=== PATIENT | male | born 1950 | race Caucasian/White ===

== ENCOUNTER 2020-04-21 18:19 | Inpatient (IN) | payer OTHER, SELFPAY ==
[~2020-04-21] VITALS: Ht 172.7 cm; Wt 76.7 kg
[2020-04-21] MEDS ORDERED: DEXAMETHASONE SOD PHOSPHATE 4 MG/ML VIAL IVP ONE (18:30)
[2020-04-21 18:44] VITALS: BP_SYST 100
[2020-04-21 19:36] LABS: BASOPHILS % (AUTO) 0.2 % (0.0-2.0); HEMATOCRIT 37.9 % (36-54); HEMOGLOBIN 13.1 g/dL (14.0-18.0); LYMPHOCYTES # (AUTO) 0.9 K/uL (1.0-5.5); LYMPHOCYTES % (AUTO) 6.2 % (20.5-51.5); MEAN CORPUSCULAR HEMOGLOBIN 31 pg (27-31); MEAN CORPUSCULAR HGB CONC 35 % (32-36); MEAN CORPUSCULAR VOLUME 89 fL (79.0-98.0); MONOCYTES # (AUTO) 1.1 K/uL (0.0-1.0); MONOCYTES % (AUTO) 7.2 % (1.7-9.3); NEUTROPHILS # (AUTO) 12.7 K/uL (1.8-7.7); NEUTROPHILS % (AUTO) 86.4 % (40.0-70.0); RED BLOOD CELL COUNT(AUTO) 4.29 MIL/uL (4.2-6.2); WHITE BLOOD COUNT (AUTO) 14.7 K/uL (4.8-10.8)
[2020-04-21 19:46] LABS: CALCIUM 8.1 mg/dL (8.4-11.0); CREATININE 1.46 mg/dL (0.55-1.30); POTASSIUM 4.7 mmol/L (3.5-5.1)
[2020-04-21] MEDS ORDERED: AZITHROMYCIN 500 MG in NS 250 ML IV ONE (20:00)
[2020-04-21] MEDS ORDERED: cefTRIAXone 1 GM IVPB PREMIX 50 ML IV ONE ×2 (20:00→23:45)
[2020-04-21 20:03] LABS: ALBUMIN 2.6 g/dL (3.4-4.8); TOTAL BILIRUBIN 0.9 mg/dL (0.0-1.0)
[2020-04-21] MEDS ORDERED: AZITHROMYCIN 500 MG/VIAL (ZITHROMAX) IV ONE (20:17)
[2020-04-21 20:18] LABS: PLATELET COUNT (AUTO) 344 K/uL (130-430)
[2020-04-21] MEDS ORDERED: DEXAMETHASONE SOD PHOSPHATE 10 MG/ML VIAL ONE (20:18)
[2020-04-21 20:30] LABS: INR 1.1 (0.80-1.20); PROTHROMBIN TIME 11.6 SECS (9.5-12.5)
[2020-04-21] MEDS ORDERED: ENOXAPARIN SODIUM 60 MG/0.6 ML SYRINGE SUBCUT ONE (21:00)
[2020-04-21] MEDS ORDERED: NS 500 ML IV ONE (21:00)
[2020-04-21 21:06] LABS: C-REACTIVE PROTEIN QUANT 37.9 mg/dL (0-0.5)
[2020-04-21] MEDS ORDERED: NITROGLYCERIN 0.4 MG TAB.SUBL SL PRN (23:30)
[2020-04-21] MEDS ORDERED: ALBUTEROL MDI INHALATION 8 GM INH INH PRN (23:30)
[2020-04-21] MEDS ORDERED: ONDANSETRON HCL 4 MG/2 ML VIAL IVP PRN (23:30)
[2020-04-22] MEDS ORDERED: ALBUTEROL SULFATE 0.083% 2.5 MG/3 ML VIAL.NEB INH PRN (07:15)
[2020-04-22 08:04] LABS: ALBUMIN 2.5 g/dL (3.4-4.8); CALCIUM 7.5 mg/dL (8.4-11.0); CREATININE 1.45 mg/dL (0.55-1.30); POTASSIUM 4.6 mmol/L (3.5-5.1); TOTAL BILIRUBIN 0.6 mg/dL (0.0-1.0)
[2020-04-22 08:14] LABS: BASOPHILS % (AUTO) 0.2 % (0.0-2.0); EOSINOPHILS % (AUTO) 0.1 % (0.0-4.0); HEMATOCRIT 36.9 % (36-54); HEMOGLOBIN 12.9 g/dL (14.0-18.0); LYMPHOCYTES # (AUTO) 0.6 K/uL (1.0-5.5); LYMPHOCYTES % (AUTO) 6.9 % (20.5-51.5); MEAN CORPUSCULAR HEMOGLOBIN 31 pg (27-31); MEAN CORPUSCULAR HGB CONC 35 % (32-36); MEAN CORPUSCULAR VOLUME 89 fL (79.0-98.0); MONOCYTES # (AUTO) 0.4 K/uL (0.0-1.0); MONOCYTES % (AUTO) 4.7 % (1.7-9.3); NEUTROPHILS # (AUTO) 8.3 K/uL (1.8-7.7); NEUTROPHILS % (AUTO) 88.1 % (40.0-70.0); PLATELET COUNT (AUTO) 261 K/uL (130-430); RED BLOOD CELL COUNT(AUTO) 4.15 MIL/uL (4.2-6.2); RED CELL DISTRIBUTION WIDTH 13.1 % (9.0-15.0); WHITE BLOOD COUNT (AUTO) 9.4 K/uL (4.8-10.8)
[2020-04-22] MEDS: DEXAMETHASONE SOD PHOSPHATE 10 MG/ML VIAL IVP SCH (08:22)
[2020-04-22] MEDS: FAMOTIDINE 20 MG TABLET PO SCH ×2 (08:23→22:17)
[2020-04-22] MEDS: LISINOPRIL 10 MG TABLET (PRINIVIL) PO SCH (08:24)
[2020-04-22] MEDS ORDERED: CHOLECALCIFEROL (VITAMIN D3) 2,000 UNIT TABLET PO SCH (09:00)
[2020-04-22] MEDS: ATORVASTATIN 20 MG TABLET PO SCH (09:02)
[2020-04-22] MEDS: ASCORBIC ACID 500 MG TABLET PO SCH ×2 (09:02→22:17)
[2020-04-22] MEDS: ENOXAPARIN SODIUM 80 MG/0.8 ML SYRINGE SUBCUT SCH ×2 (09:03→22:20)
[2020-04-22] MEDS ORDERED: AMLO1CAP6 PO (11:00)
[2020-04-22] MEDS ORDERED: LIP10 PO (11:00)
[2020-04-22] MEDS ORDERED: HYDR-4274 PO (11:00)
[2020-04-22 13:13] LABS: C-REACTIVE PROTEIN QUANT 37.6 mg/dL (0-0.5)
[2020-04-22] MEDS: NACL 0.9% 1,000 ML IV SCH (13:58)
[2020-04-22 14:12] LABS: BILIRUBIN,URINE NEGATIVE (NEGATIVE); BLOOD, URINE 1+ (NEGATIVE); CLARITY/URINE SL CLOUDY (CLEAR); COLOR,URINE YELLOW (YELLOW); GLUCOSE,URINE NEGATIVE (NEGATIVE); KETONES,URINE NEGATIVE (NEGATIVE); LEUKOCYTE ESTERASE ,URINE NEGATIVE (NEGATIVE); NITRITE, URINE NEGATIVE (NEGATIVE); PH,URINE 5.5 (5.0-8.0); PROTEIN URINE NEGATIVE (NEGATIVE); UROBILINOGEN,URINE 0.2 (0.2-1.0)
[2020-04-22 14:20] LABS: BACTERIA,URINE None Seen /HPF (None Seen); CALCIUM PHOSPHATE CRYSTALS,UR None Seen /HPF (None Seen); TRICHOMONAS,URINE None Seen /HPF (None Seen); WBC,URINE 0-3 /HPF (0-3); YEAST,URINE None Seen /HPF (None Seen)
[2020-04-22] MEDS ORDERED: cefTRIAXone 1 GM IVPB PREMIX 50 ML IV SCH (21:00)
[2020-04-22] MEDS: AZITHROMYCIN 500 MG in NS 250 ML IV SCH (22:19)
[2020-04-23 00:07] LABS: ERYTHROCYTE SEDIMENTATION RATE 60 MM/HR (0-15)
[2020-04-23 08:15] LABS: HEMATOCRIT 36.2 % (36-54); HEMOGLOBIN 12.5 g/dL (14.0-18.0); MEAN CORPUSCULAR HEMOGLOBIN 31 pg (27-31); MEAN CORPUSCULAR HGB CONC 34 % (32-36); MEAN CORPUSCULAR VOLUME 89 fL (79.0-98.0); PLATELET COUNT (AUTO) 284 K/uL (130-430); RED BLOOD CELL COUNT(AUTO) 4.08 MIL/uL (4.2-6.2); RED CELL DISTRIBUTION WIDTH 13.1 % (9.0-15.0); WHITE BLOOD COUNT (AUTO) 18.8 K/uL (4.8-10.8)
[2020-04-23] MEDS: DEXAMETHASONE SOD PHOSPHATE 10 MG/ML VIAL IVP SCH (08:39)
[2020-04-23] MEDS: ATORVASTATIN 20 MG TABLET PO SCH (08:41)
[2020-04-23 08:42] LABS: ALBUMIN 2.2 g/dL (3.4-4.8); CALCIUM 7.8 mg/dL (8.4-11.0); CREATININE 0.99 mg/dL (0.55-1.30); POTASSIUM 4.5 mmol/L (3.5-5.1); THYROID STIMULATING HORMONE 0.18 uIu/mL (0.36-3.74); TOTAL BILIRUBIN 0.5 mg/dL (0.0-1.0)
[2020-04-23] MEDS: FAMOTIDINE 20 MG TABLET PO SCH ×2 (08:42→20:46)
[2020-04-23] MEDS: ASCORBIC ACID 500 MG TABLET PO SCH ×2 (08:43→20:45)
[2020-04-23] MEDS: LISINOPRIL 10 MG TABLET (PRINIVIL) PO SCH (08:43)
[2020-04-23] MEDS: CHOLECALCIFEROL (VITAMIN D3) 5,000 UNIT TABLET PO SCH (08:44)
[2020-04-23] MEDS: ENOXAPARIN SODIUM 80 MG/0.8 ML SYRINGE SUBCUT SCH (08:45)
[2020-04-23] MEDS: NACL 0.9% 1,000 ML IV SCH (08:46)
[2020-04-23 15:06] LABS: BAND % (MANUAL) 4 % (0-6); BASOPHILS % (MANUAL) 0 % (0-2); EOSINOPHILS % (MANUAL) 0 % (0-7); LYMPHOCYTES % (MANUAL) 7 % (20-46); MONOCYTES % (MANUAL) 4 % (0-11)
[2020-04-23] MEDS: AZITHROMYCIN 500 MG in NS 250 ML IV SCH (20:40)
[2020-04-24] MEDS ORDERED: ACETAMINOPHEN 325 MG TABLET ONE ×2 (04:06→11:59)
[2020-04-24] MEDS: ACETAMINOPHEN 325 MG TABLET PO PRN ×2 (04:16→12:03)
[2020-04-24 07:03] LABS: ALBUMIN 2.2 g/dL (3.4-4.8); CALCIUM 7.5 mg/dL (8.4-11.0); CREATININE 0.92 mg/dL (0.55-1.30); POTASSIUM 4.6 mmol/L (3.5-5.1); TOTAL BILIRUBIN 0.5 mg/dL (0.0-1.0)
[2020-04-24 07:32] LABS: C-REACTIVE PROTEIN QUANT 8.3 mg/dL (0-0.5)
[2020-04-24 08:01] LABS: BASOPHILS # (AUTO) 0.1 K/uL (0.0-0.2); BASOPHILS % (AUTO) 0.4 % (0.0-2.0); EOSINOPHILS % (AUTO) 0.2 % (0.0-4.0); HEMATOCRIT 35.9 % (36-54); HEMOGLOBIN 12.2 g/dL (14.0-18.0); LYMPHOCYTES # (AUTO) 0.7 K/uL (1.0-5.5); LYMPHOCYTES % (AUTO) 4.7 % (20.5-51.5); MEAN CORPUSCULAR HEMOGLOBIN 31 pg (27-31); MEAN CORPUSCULAR HGB CONC 34 % (32-36); MEAN CORPUSCULAR VOLUME 90 fL (79.0-98.0); MONOCYTES # (AUTO) 0.6 K/uL (0.0-1.0); MONOCYTES % (AUTO) 3.8 % (1.7-9.3); NEUTROPHILS % (AUTO) 90.9 % (40.0-70.0); PLATELET COUNT (AUTO) 257 K/uL (130-430); RED BLOOD CELL COUNT(AUTO) 3.99 MIL/uL (4.2-6.2); RED CELL DISTRIBUTION WIDTH 13.2 % (9.0-15.0)
[2020-04-24] MEDS: DEXAMETHASONE SOD PHOSPHATE 10 MG/ML VIAL IVP SCH (08:12)
[2020-04-24] MEDS: ATORVASTATIN 20 MG TABLET PO SCH (08:12)
[2020-04-24] MEDS: ASCORBIC ACID 500 MG TABLET PO SCH ×2 (08:12→21:36)
[2020-04-24] MEDS: FAMOTIDINE 20 MG TABLET PO SCH ×2 (08:13→21:36)
[2020-04-24] MEDS: LISINOPRIL 10 MG TABLET (PRINIVIL) PO SCH (08:14)
[2020-04-24 08:17] LABS: WHITE BLOOD COUNT (AUTO) 15.4 K/uL (4.8-10.8)
[2020-04-24] MEDS: CHOLECALCIFEROL (VITAMIN D3) 5,000 UNIT TABLET PO SCH (09:34)
[2020-04-24] MEDS: ENOXAPARIN SODIUM 80 MG/0.8 ML SYRINGE SUBCUT SCH (09:36)
[2020-04-24 09:45] LABS: ERYTHROCYTE SEDIMENTATION RATE 23 MM/HR (0-15)
[2020-04-24] MEDS ORDERED: ANUSOL 1 EA SUPP.RECT (PREPARATION H) RC PRN (10:15)
[2020-04-24] MEDS: LIDOCAINE JELLY 5 ML TUBE MM SCH ×2 (11:28→21:35)
[2020-04-24] MEDS ORDERED: DEXAMETHASONE SOD PHOSPHATE 10 MG/ML VIAL ONE (13:32)
[2020-04-24] MEDS: AZITHROMYCIN 500 MG in NS 250 ML IV SCH (21:37)
[2020-04-25] MEDS ORDERED: LORazepam 2 MG/ML VIAL ONE ×2 (00:15→10:45)
[2020-04-25] MEDS ORDERED: LORazepam 2 MG/ML VIAL IVP ONE (00:15)
[2020-04-25] MEDS: LORazepam 2 MG/ML VIAL IVP PRN ×2 (00:41→10:46)
[2020-04-25] MEDS ORDERED: IPRATROPIUM/ALBUTEROL SULFATE 3 ML AMPUL.NEB (DUONEB) INH ONE (00:45)
[2020-04-25] MEDS ORDERED: DEXAMETHASONE SOD PHOSPHATE 10 MG/ML VIAL IVP ONE (00:45)
[2020-04-25] MEDS ORDERED: DEXAMETHASONE SOD PHOSPHATE 10 MG/ML VIAL ONE (00:46)
[2020-04-25] MEDS ORDERED: FUROSEMIDE 100 MG/10 ML VIAL ONE (00:52)
[2020-04-25] MEDS ORDERED: FUROSEMIDE 40 MG/4 ML VIAL IVP ONE (01:00)
[2020-04-25] MEDS ORDERED: PROPOFOL DRIP 100 ML IV ONE ×4 (01:18→21:07)
[2020-04-25] MEDS ORDERED: ETOMIDATE 20 MG/ 10 ML VIAL (AMIDATE) IVP ONE (01:45)
[2020-04-25] MEDS ORDERED: ROCURONIUM BROMIDE 10 MG/ML (ZEMURON) IV ONE (01:45)
[2020-04-25] MEDS: PROPOFOL DRIP 100 ML IV PRN ×2 (02:42→22:33)
[2020-04-25 04:31] VITALS: BP_SYST 123
[2020-04-25 05:23] VITALS: BP_SYST 115
[2020-04-25 06:01] LABS: BASOPHILS % (AUTO) 0.1 % (0.0-2.0); HEMATOCRIT 37.6 % (36-54); HEMOGLOBIN 12.5 g/dL (14.0-18.0); LYMPHOCYTES # (AUTO) 0.5 K/uL (1.0-5.5); LYMPHOCYTES % (AUTO) 1.6 % (20.5-51.5); MEAN CORPUSCULAR HEMOGLOBIN 30 pg (27-31); MEAN CORPUSCULAR HGB CONC 33 % (32-36); MEAN CORPUSCULAR VOLUME 90 fL (79.0-98.0); MONOCYTES # (AUTO) 0.8 K/uL (0.0-1.0); MONOCYTES % (AUTO) 2.6 % (1.7-9.3); NEUTROPHILS # (AUTO) 28.5 K/uL (1.8-7.7); NEUTROPHILS % (AUTO) 95.7 % (40.0-70.0); PLATELET COUNT (AUTO) 184 K/uL (130-430); RED BLOOD CELL COUNT(AUTO) 4.17 MIL/uL (4.2-6.2); RED CELL DISTRIBUTION WIDTH 13.2 % (9.0-15.0); WHITE BLOOD COUNT (AUTO) 29.8 K/uL (4.8-10.8)
[2020-04-25 06:03] LABS: ALBUMIN 2.4 g/dL (3.4-4.8); CALCIUM 7.5 mg/dL (8.4-11.0); CREATININE 1.29 mg/dL (0.55-1.30); POTASSIUM 5.6 mmol/L (3.5-5.1); TOTAL BILIRUBIN 0.5 mg/dL (0.0-1.0)
[2020-04-25 07:18] LABS: C-REACTIVE PROTEIN QUANT 27.9 mg/dL (0-0.5)
[2020-04-25 07:20] VITALS: BP_SYST 107
[2020-04-25 08:15] LABS: ERYTHROCYTE SEDIMENTATION RATE 25 MM/HR (0-15)
[2020-04-25] MEDS: LISINOPRIL 10 MG TABLET (PRINIVIL) PO SCH (09:00)
[2020-04-25] MEDS: DEXAMETHASONE SOD PHOSPHATE 10 MG/ML VIAL IVP SCH (10:47)
[2020-04-25 11:01] VITALS: BP_SYST 103
[2020-04-25] MEDS: FAMOTIDINE 20 MG TABLET PO SCH ×2 (15:00→21:36)
[2020-04-25] MEDS: CHOLECALCIFEROL (VITAMIN D3) 5,000 UNIT TABLET PO SCH (15:00)
[2020-04-25] MEDS: LIDOCAINE JELLY 5 ML TUBE MM SCH ×2 (15:00→21:35)
[2020-04-25] MEDS: ENOXAPARIN SODIUM 80 MG/0.8 ML SYRINGE SUBCUT SCH (15:00)
[2020-04-25] MEDS: ASCORBIC ACID 500 MG TABLET PO SCH ×2 (15:00→21:36)
[2020-04-25] MEDS: ATORVASTATIN 20 MG TABLET PO SCH (15:00)
[2020-04-25 15:23] VITALS: BP_SYST 94
[2020-04-25 19:20] VITALS: BP_SYST 101
[2020-04-25] MEDS: AZITHROMYCIN 500 MG in NS 250 ML IV SCH (21:35)
[2020-04-26] MEDS ORDERED: PROPOFOL DRIP 100 ML IV ONE ×3 (02:20→12:19)
[2020-04-26 02:21] VITALS: BP_SYST 105
[2020-04-26] MEDS: PROPOFOL DRIP 100 ML IV PRN ×3 (02:35→16:37)
[2020-04-26 07:35] VITALS: BP_SYST 136
[2020-04-26 08:08] LABS: BASOPHILS % (AUTO) 0.2 % (0.0-2.0); EOSINOPHILS # (AUTO) 0.1 K/uL (0.0-0.4); EOSINOPHILS % (AUTO) 0.4 % (0.0-4.0); HEMATOCRIT 34.8 % (36-54); HEMOGLOBIN 11.8 g/dL (14.0-18.0); LYMPHOCYTES # (AUTO) 1.1 K/uL (1.0-5.5); LYMPHOCYTES % (AUTO) 5.7 % (20.5-51.5); MEAN CORPUSCULAR HEMOGLOBIN 30 pg (27-31); MEAN CORPUSCULAR HGB CONC 34 % (32-36); MEAN CORPUSCULAR VOLUME 90 fL (79.0-98.0); MONOCYTES # (AUTO) 0.6 K/uL (0.0-1.0); NEUTROPHILS # (AUTO) 17.7 K/uL (1.8-7.7); NEUTROPHILS % (AUTO) 90.7 % (40.0-70.0); PLATELET COUNT (AUTO) 158 K/uL (130-430); RED BLOOD CELL COUNT(AUTO) 3.88 MIL/uL (4.2-6.2); RED CELL DISTRIBUTION WIDTH 13.1 % (9.0-15.0)
[2020-04-26 08:14] LABS: WHITE BLOOD COUNT (AUTO) 19.5 K/uL (4.8-10.8)
[2020-04-26] MEDS: DEXAMETHASONE SOD PHOSPHATE 10 MG/ML VIAL IVP SCH (08:18)
[2020-04-26] MEDS: LIDOCAINE JELLY 5 ML TUBE MM SCH ×2 (08:20→20:43)
[2020-04-26] MEDS: ENOXAPARIN SODIUM 80 MG/0.8 ML SYRINGE SUBCUT SCH (08:23)
[2020-04-26] MEDS: ATORVASTATIN 20 MG TABLET PO SCH (08:24)
[2020-04-26] MEDS: LISINOPRIL 10 MG TABLET (PRINIVIL) PO SCH (08:24)
[2020-04-26 08:48] LABS: CALCIUM 7.7 mg/dL (8.4-11.0); CREATININE 0.86 mg/dL (0.55-1.30); POTASSIUM 5.5 mmol/L (3.5-5.1); TOTAL BILIRUBIN 0.4 mg/dL (0.0-1.0)
[2020-04-26] MEDS: CHOLECALCIFEROL (VITAMIN D3) 5,000 UNIT TABLET PO SCH (09:00)
[2020-04-26] MEDS: ASCORBIC ACID 500 MG TABLET PO SCH ×2 (09:00→20:46)
[2020-04-26] MEDS: FAMOTIDINE 20 MG TABLET PO SCH ×2 (09:00→20:43)
[2020-04-26 15:26] VITALS: BP_SYST 130
[2020-04-26 17:25] VITALS: BP_SYST 113
[2020-04-26 19:30] VITALS: BP_SYST 107
[2020-04-26] MEDS: AZITHROMYCIN 500 MG in NS 250 ML IV SCH (21:15)
[2020-04-27] VITALS (8 sets, daily range): BP systolic 107–136
[2020-04-27 05:05] LABS: BASOPHILS # (AUTO) 0.1 K/uL (0.0-0.2); BASOPHILS % (AUTO) 0.7 % (0.0-2.0); EOSINOPHILS % (AUTO) 0.1 % (0.0-4.0); HEMATOCRIT 34.4 % (36-54); HEMOGLOBIN 11.5 g/dL (14.0-18.0); LYMPHOCYTES # (AUTO) 0.6 K/uL (1.0-5.5); LYMPHOCYTES % (AUTO) 3.1 % (20.5-51.5); MEAN CORPUSCULAR HEMOGLOBIN 30 pg (27-31); MEAN CORPUSCULAR HGB CONC 33 % (32-36); MEAN CORPUSCULAR VOLUME 90 fL (79.0-98.0); MONOCYTES # (AUTO) 0.8 K/uL (0.0-1.0); MONOCYTES % (AUTO) 4.1 % (1.7-9.3); NEUTROPHILS # (AUTO) 17.4 K/uL (1.8-7.7); PLATELET COUNT (AUTO) 182 K/uL (130-430); RED BLOOD CELL COUNT(AUTO) 3.81 MIL/uL (4.2-6.2); RED CELL DISTRIBUTION WIDTH 13.2 % (9.0-15.0); WHITE BLOOD COUNT (AUTO) 18.9 K/uL (4.8-10.8)
[2020-04-27 05:30] LABS: ALBUMIN 1.9 g/dL (3.4-4.8); CALCIUM 7.7 mg/dL (8.4-11.0); CREATININE 0.9 mg/dL (0.55-1.30); PHOSPHORUS 3.2 mg/dL (2.7-4.5); TOTAL BILIRUBIN 0.4 mg/dL (0.0-1.0)
[2020-04-27 05:31] LABS: POTASSIUM 5.9 mmol/L (3.5-5.1)
[2020-04-27 05:34] LABS: C-REACTIVE PROTEIN QUANT 20.2 mg/dL (0-0.5)
[2020-04-27 06:21] LABS: ERYTHROCYTE SEDIMENTATION RATE 23 MM/HR (0-15)
[2020-04-27] MEDS ORDERED: SODIUM POLYSTYRENE SULFONATE 15 GM/60 ML UDBTL NG ONE (07:15)
[2020-04-27] MEDS: FAMOTIDINE 20 MG TABLET PO SCH ×2 (08:47→20:31)
[2020-04-27] MEDS ORDERED: SODIUM POLYSTYRENE SULFONATE 15 GM/60 ML UDBTL ONE (08:47)
[2020-04-27] MEDS: DEXAMETHASONE SOD PHOSPHATE 10 MG/ML VIAL IVP SCH (08:47)
[2020-04-27] MEDS: ATORVASTATIN 20 MG TABLET PO SCH (08:47)
[2020-04-27] MEDS: LIDOCAINE JELLY 5 ML TUBE MM SCH ×2 (08:47→21:00)
[2020-04-27] MEDS: ASCORBIC ACID 500 MG TABLET PO SCH ×2 (08:48→20:32)
[2020-04-27] MEDS: CHOLECALCIFEROL (VITAMIN D3) 5,000 UNIT TABLET PO SCH (08:48)
[2020-04-27] MEDS: LISINOPRIL 10 MG TABLET (PRINIVIL) PO SCH (08:48)
[2020-04-27] MEDS: ENOXAPARIN SODIUM 80 MG/0.8 ML SYRINGE SUBCUT SCH (08:48)
[2020-04-27] MEDS ORDERED: PROPOFOL DRIP 100 ML IV ONE ×3 (10:22→18:59)
[2020-04-27] MEDS ORDERED: LORazepam 2 MG/ML VIAL ONE (10:35)
[2020-04-27] MEDS: PROPOFOL DRIP 100 ML IV PRN ×2 (10:54→19:03)
[2020-04-27] MEDS: LORazepam 2 MG/ML VIAL IVP PRN (10:54)
[2020-04-27] MEDS ORDERED: ACETAMINOPHEN 325 MG TABLET ONE (11:09)
[2020-04-27] MEDS: ACETAMINOPHEN 325 MG TABLET PO PRN (11:11)
[2020-04-27] MEDS ORDERED: FUROSEMIDE 20 MG/2 ML VIAL IVP ONE (19:30)
[2020-04-27] MEDS ORDERED: FUROSEMIDE 20 MG/2 ML VIAL ONE (22:27)
[2020-04-28] VITALS (12 sets, daily range): BP systolic 101–120
[2020-04-28 04:53] LABS: BASOPHILS % (AUTO) 0.3 % (0.0-2.0); EOSINOPHILS % (AUTO) 0.2 % (0.0-4.0); HEMATOCRIT 35.6 % (36-54); HEMOGLOBIN 11.9 g/dL (14.0-18.0); LYMPHOCYTES # (AUTO) 1.1 K/uL (1.0-5.5); LYMPHOCYTES % (AUTO) 7.6 % (20.5-51.5); MEAN CORPUSCULAR HEMOGLOBIN 30 pg (27-31); MEAN CORPUSCULAR HGB CONC 33 % (32-36); MEAN CORPUSCULAR VOLUME 90 fL (79.0-98.0); MONOCYTES # (AUTO) 0.8 K/uL (0.0-1.0); MONOCYTES % (AUTO) 5.6 % (1.7-9.3); NEUTROPHILS # (AUTO) 12.3 K/uL (1.8-7.7); NEUTROPHILS % (AUTO) 86.3 % (40.0-70.0); PLATELET COUNT (AUTO) 217 K/uL (130-430); RED BLOOD CELL COUNT(AUTO) 3.94 MIL/uL (4.2-6.2); WHITE BLOOD COUNT (AUTO) 14.3 K/uL (4.8-10.8)
[2020-04-28 05:13] LABS: C-REACTIVE PROTEIN QUANT 23.3 mg/dL (0-0.5)
[2020-04-28 05:28] LABS: ALBUMIN 1.9 g/dL (3.4-4.8); CALCIUM 7.8 mg/dL (8.4-11.0); CREATININE 0.91 mg/dL (0.55-1.30); FREE T4 (FREE THYROXINE) 1.2 ng/dl (0.8-1.5); POTASSIUM 5.2 mmol/L (3.5-5.1); TOTAL BILIRUBIN 0.4 mg/dL (0.0-1.0)
[2020-04-28 05:38] LABS: ERYTHROCYTE SEDIMENTATION RATE 66 MM/HR (0-15)
[2020-04-28] MEDS: PROPOFOL DRIP 100 ML IV PRN ×3 (06:00→11:11)
[2020-04-28] MEDS: ATORVASTATIN 20 MG TABLET PO SCH (08:44)
[2020-04-28] MEDS: DEXAMETHASONE SOD PHOSPHATE 10 MG/ML VIAL IVP SCH (08:44)
[2020-04-28] MEDS: CHOLECALCIFEROL (VITAMIN D3) 5,000 UNIT TABLET PO SCH (08:44)
[2020-04-28] MEDS: FAMOTIDINE 20 MG TABLET PO SCH ×2 (08:44→21:01)
[2020-04-28] MEDS: LIDOCAINE JELLY 5 ML TUBE MM SCH ×2 (08:44→20:58)
[2020-04-28] MEDS: ASCORBIC ACID 500 MG TABLET PO SCH ×2 (08:44→21:01)
[2020-04-28] MEDS: ENOXAPARIN SODIUM 40 MG/0.4 ML SYRINGE SUBCUT SCH (08:46)
[2020-04-28] MEDS: LISINOPRIL 10 MG TABLET (PRINIVIL) PO SCH (08:47)
[2020-04-28] MEDS ORDERED: SODIUM POLYSTYRENE SULFONATE 15 GM/60 ML UDBTL NG ONE (20:15)
[2020-04-28] MEDS: NACL 0.9% 1,000 ML IV SCH (21:00)
[2020-04-29] VITALS (7 sets, daily range): BP systolic 77–121
[2020-04-29] MEDS ORDERED: SODIUM POLYSTYRENE SULFONATE 15 GM/60 ML UDBTL ONE (05:41)
[2020-04-29 08:37] LABS: CALCIUM 7.9 mg/dL (8.4-11.0); CREATININE 0.88 mg/dL (0.55-1.30); PHOSPHORUS 4.5 mg/dL (2.7-4.5); POTASSIUM 5.1 mmol/L (3.5-5.1); TOTAL BILIRUBIN 0.5 mg/dL (0.0-1.0)
[2020-04-29] MEDS ORDERED: ENOXAPARIN SODIUM 40 MG/0.4 ML SYRINGE ONE (08:40)
[2020-04-29] MEDS: ATORVASTATIN 20 MG TABLET PO SCH (08:46)
[2020-04-29 08:47] LABS: BASOPHILS # (AUTO) 0.1 K/uL (0.0-0.2); BASOPHILS % (AUTO) 0.3 % (0.0-2.0); EOSINOPHILS # (AUTO) 0.1 K/uL (0.0-0.4); EOSINOPHILS % (AUTO) 0.7 % (0.0-4.0); HEMATOCRIT 37.6 % (36-54); HEMOGLOBIN 12.3 g/dL (14.0-18.0); LYMPHOCYTES # (AUTO) 0.9 K/uL (1.0-5.5); LYMPHOCYTES % (AUTO) 5.6 % (20.5-51.5); MEAN CORPUSCULAR HEMOGLOBIN 30 pg (27-31); MEAN CORPUSCULAR HGB CONC 33 % (32-36); MEAN CORPUSCULAR VOLUME 91 fL (79.0-98.0); MONOCYTES # (AUTO) 0.8 K/uL (0.0-1.0); MONOCYTES % (AUTO) 4.6 % (1.7-9.3); NEUTROPHILS # (AUTO) 14.9 K/uL (1.8-7.7); PLATELET COUNT (AUTO) 240 K/uL (130-430); RED BLOOD CELL COUNT(AUTO) 4.13 MIL/uL (4.2-6.2); WHITE BLOOD COUNT (AUTO) 16.8 K/uL (4.8-10.8)
[2020-04-29] MEDS: LISINOPRIL 10 MG TABLET (PRINIVIL) PO SCH (08:51)
[2020-04-29 08:52] LABS: C-REACTIVE PROTEIN QUANT 12.8 mg/dL (0-0.5)
[2020-04-29] MEDS: DEXAMETHASONE SOD PHOSPHATE 10 MG/ML VIAL IVP SCH (08:53)
[2020-04-29] MEDS: LIDOCAINE JELLY 5 ML TUBE MM SCH ×2 (09:00→20:27)
[2020-04-29] MEDS: ENOXAPARIN SODIUM 40 MG/0.4 ML SYRINGE SUBCUT SCH (09:02)
[2020-04-29] MEDS: FAMOTIDINE 20 MG TABLET PO SCH ×2 (09:21→20:26)
[2020-04-29] MEDS: ASCORBIC ACID 500 MG TABLET PO SCH ×2 (09:22→20:26)
[2020-04-29] MEDS: CHOLECALCIFEROL (VITAMIN D3) 5,000 UNIT TABLET PO SCH (09:23)
[2020-04-29] MEDS: PROPOFOL DRIP 100 ML IV PRN ×3 (09:54→18:49)
[2020-04-29 11:52] LABS: ERYTHROCYTE SEDIMENTATION RATE 82 MM/HR (0-15)
[2020-04-29 12:11] LABS: NEUTROPHILS % (AUTO) 88.8 % (40.0-70.0)
[2020-04-29] MEDS ORDERED: NS 500 ML IV ONE (15:15)
[2020-04-29] MEDS ORDERED: CEFEPIME 1 GM/VIAL (MAXIPIME) ONE (20:33)
[2020-04-29] MEDS: CEFEPIME 0.5 GM in D5W 50 ML IV SCH (20:39)
[2020-04-29] MEDS: NACL 0.9% 1,000 ML IV SCH (21:16)
[2020-04-30 00:05] VITALS: BP_SYST 147
[2020-04-30] MEDS ORDERED: ACETAMINOPHEN 650 MG SUPP.RECT RC ONE ×2 (01:05→06:35)
[2020-04-30] MEDS: ACETAMINOPHEN 325 MG TABLET PO PRN ×2 (01:06→06:39)
[2020-04-30] MEDS ORDERED: NOREPINEPHRINE 4 MG/4 ML VIAL IV ONE (01:55)
[2020-04-30] MEDS ORDERED: NOREPINEPHRINE BITARTRATE 4 MG in NS 246 ML IV PRN (02:15)
[2020-04-30] MEDS ORDERED: ALBUMIN HUMAN 25% 50 ML IV ONE ×2 (02:15→03:09)
[2020-04-30] MEDS: NACL 0.9% 1,000 ML IV SCH (04:31)
[2020-04-30 06:48] LABS: BASOPHILS % (AUTO) 0.2 % (0.0-2.0); HEMATOCRIT 32.7 % (36-54); HEMOGLOBIN 10.7 g/dL (14.0-18.0); LYMPHOCYTES # (AUTO) 0.7 K/uL (1.0-5.5); MEAN CORPUSCULAR HEMOGLOBIN 30 pg (27-31); MEAN CORPUSCULAR HGB CONC 33 % (32-36); MEAN CORPUSCULAR VOLUME 91 fL (79.0-98.0); NEUTROPHILS # (AUTO) 22.2 K/uL (1.8-7.7); NEUTROPHILS % (AUTO) 92.8 % (40.0-70.0); PLATELET COUNT (AUTO) 183 K/uL (130-430); RED BLOOD CELL COUNT(AUTO) 3.58 MIL/uL (4.2-6.2); RED CELL DISTRIBUTION WIDTH 13.3 % (9.0-15.0); WHITE BLOOD COUNT (AUTO) 23.9 K/uL (4.8-10.8)
[2020-04-30 07:00] LABS: ALBUMIN 1.9 g/dL (3.4-4.8); CALCIUM 7.5 mg/dL (8.4-11.0); CREATININE 1.14 mg/dL (0.55-1.30); POTASSIUM 4.4 mmol/L (3.5-5.1); TOTAL BILIRUBIN 0.7 mg/dL (0.0-1.0)
[2020-04-30 07:20] VITALS: BP_SYST 112
[2020-04-30] MEDS: ATORVASTATIN 20 MG TABLET PO SCH (09:00)
[2020-04-30] MEDS: LISINOPRIL 10 MG TABLET (PRINIVIL) PO SCH (09:00)
[2020-04-30] MEDS: ASCORBIC ACID 500 MG TABLET PO SCH ×2 (09:00→21:00)
[2020-04-30] MEDS: CHOLECALCIFEROL (VITAMIN D3) 5,000 UNIT TABLET PO SCH (09:00)
[2020-04-30] MEDS: FAMOTIDINE 20 MG TABLET PO SCH ×2 (09:00→21:00)
[2020-04-30] MEDS: LIDOCAINE JELLY 5 ML TUBE MM SCH ×2 (09:57→21:00)
[2020-04-30] MEDS: DEXAMETHASONE SOD PHOSPHATE 10 MG/ML VIAL IVP SCH (09:57)
[2020-04-30] MEDS: CEFEPIME 0.5 GM in D5W 50 ML IV SCH ×2 (09:57→23:41)
[2020-04-30 10:27] LABS: C-REACTIVE PROTEIN QUANT 26.4 mg/dL (0-0.5)
[2020-04-30] MEDS: ENOXAPARIN SODIUM 40 MG/0.4 ML SYRINGE SUBCUT SCH (10:34)
[2020-04-30 11:15] VITALS: BP_SYST 146
[2020-04-30 15:15] VITALS: BP_SYST 139
[2020-04-30] MEDS: metroNIDAZOLE 500 mg/NS 100 ML IV SCH (21:00)
[2020-05-01 05:02] LABS: BASOPHILS # (AUTO) 0.1 K/uL (0.0-0.2); BASOPHILS % (AUTO) 0.9 % (0.0-2.0); EOSINOPHILS # (AUTO) 0.1 K/uL (0.0-0.4); EOSINOPHILS % (AUTO) 0.5 % (0.0-4.0); HEMATOCRIT 33.3 % (36-54); HEMOGLOBIN 11.1 g/dL (14.0-18.0); LYMPHOCYTES # (AUTO) 0.6 K/uL (1.0-5.5); LYMPHOCYTES % (AUTO) 4.4 % (20.5-51.5); MEAN CORPUSCULAR HEMOGLOBIN 30 pg (27-31); MEAN CORPUSCULAR HGB CONC 33 % (32-36); MEAN CORPUSCULAR VOLUME 91 fL (79.0-98.0); MONOCYTES # (AUTO) 0.8 K/uL (0.0-1.0); MONOCYTES % (AUTO) 5.1 % (1.7-9.3); NEUTROPHILS # (AUTO) 13.1 K/uL (1.8-7.7); NEUTROPHILS % (AUTO) 89.1 % (40.0-70.0); PLATELET COUNT (AUTO) 187 K/uL (130-430); RED BLOOD CELL COUNT(AUTO) 3.68 MIL/uL (4.2-6.2); RED CELL DISTRIBUTION WIDTH 13.3 % (9.0-15.0); WHITE BLOOD COUNT (AUTO) 14.7 K/uL (4.8-10.8)
[2020-05-01 05:29] LABS: ALBUMIN 1.9 g/dL (3.4-4.8); CALCIUM 7.8 mg/dL (8.4-11.0); CREATININE 0.66 mg/dL (0.55-1.30); PHOSPHORUS 2.2 mg/dL (2.7-4.5); POTASSIUM 4.7 mmol/L (3.5-5.1); TOTAL BILIRUBIN 0.6 mg/dL (0.0-1.0)
[2020-05-01 05:44] LABS: C-REACTIVE PROTEIN QUANT 33.2 mg/dL (0-0.5)
[2020-05-01 05:52] LABS: ERYTHROCYTE SEDIMENTATION RATE 94 MM/HR (0-15)
[2020-05-01] MEDS: CHOLECALCIFEROL (VITAMIN D3) 5,000 UNIT TABLET PO SCH (09:00)
[2020-05-01] MEDS: FAMOTIDINE 20 MG TABLET PO SCH (09:00)
[2020-05-01] MEDS: ATORVASTATIN 20 MG TABLET PO SCH (09:00)
[2020-05-01] MEDS: LISINOPRIL 10 MG TABLET (PRINIVIL) PO SCH (09:00)
[2020-05-01] MEDS: ASCORBIC ACID 500 MG TABLET PO SCH ×2 (09:00→21:00)
[2020-05-01] MEDS: LIDOCAINE JELLY 5 ML TUBE MM SCH ×2 (09:00→21:00)
[2020-05-01] MEDS ORDERED: IOHEXOL 350 mgI/mL, 150 ML INFUS..BTL IV ONE (09:10)
[2020-05-01 09:41] VITALS: BP_SYST 133
[2020-05-01] MEDS: DEXAMETHASONE SOD PHOSPHATE 10 MG/ML VIAL IVP SCH (11:00)
[2020-05-01] MEDS: metroNIDAZOLE 500 mg/NS 100 ML IV SCH (11:00)
[2020-05-01] MEDS: CEFEPIME 0.5 GM in D5W 50 ML IV SCH (12:00)
[2020-05-01] MEDS: ENOXAPARIN SODIUM 40 MG/0.4 ML SYRINGE SUBCUT SCH (15:00)
[2020-05-02] MEDS: metroNIDAZOLE 500 mg/NS 100 ML IV SCH ×3 (02:26→22:48)
[2020-05-02] MEDS: NACL 0.9% 1,000 ML IV SCH ×2 (02:27→20:56)
[2020-05-02] MEDS: CEFEPIME 0.5 GM in D5W 50 ML IV SCH ×3 (02:28→22:48)
[2020-05-02] MEDS: FAMOTIDINE 20 MG TABLET PO SCH ×3 (02:29→21:00)
[2020-05-02 07:10] LABS: BASOPHILS # (AUTO) 0.2 K/uL (0.0-0.2); HEMATOCRIT 35.5 % (36-54); HEMOGLOBIN 11.7 g/dL (14.0-18.0); LYMPHOCYTES # (AUTO) 0.7 K/uL (1.0-5.5); LYMPHOCYTES % (AUTO) 4.3 % (20.5-51.5); MEAN CORPUSCULAR HEMOGLOBIN 30 pg (27-31); MEAN CORPUSCULAR HGB CONC 33 % (32-36); MEAN CORPUSCULAR VOLUME 91 fL (79.0-98.0); MONOCYTES # (AUTO) 0.8 K/uL (0.0-1.0); MONOCYTES % (AUTO) 4.9 % (1.7-9.3); NEUTROPHILS # (AUTO) 14.6 K/uL (1.8-7.7); NEUTROPHILS % (AUTO) 89.8 % (40.0-70.0); PLATELET COUNT (AUTO) 220 K/uL (130-430); WHITE BLOOD COUNT (AUTO) 16.3 K/uL (4.8-10.8)
[2020-05-02 07:47] LABS: ALBUMIN 2.1 g/dL (3.4-4.8); CALCIUM 8.2 mg/dL (8.4-11.0); CREATININE 0.72 mg/dL (0.55-1.30); POTASSIUM 4.3 mmol/L (3.5-5.1); TOTAL BILIRUBIN 0.7 mg/dL (0.0-1.0)
[2020-05-02] MEDS: ATORVASTATIN 20 MG TABLET PO SCH (09:21)
[2020-05-02] MEDS: DEXAMETHASONE SOD PHOSPHATE 10 MG/ML VIAL IVP SCH (09:21)
[2020-05-02] MEDS: ASCORBIC ACID 500 MG TABLET PO SCH ×2 (09:22→21:00)
[2020-05-02] MEDS: LISINOPRIL 10 MG TABLET (PRINIVIL) PO SCH (09:22)
[2020-05-02] MEDS: CHOLECALCIFEROL (VITAMIN D3) 5,000 UNIT TABLET PO SCH (09:23)
[2020-05-02] MEDS: LIDOCAINE JELLY 5 ML TUBE MM SCH (09:27)
[2020-05-02] MEDS: ENOXAPARIN SODIUM 40 MG/0.4 ML SYRINGE SUBCUT SCH (12:07)
[2020-05-02] MEDS ORDERED: LACTULOSE 20 GM/30 ML UDC PO PRN (14:45)
[2020-05-02] MEDS: ACETAMINOPHEN 325 MG TABLET PO PRN (16:20)
[2020-05-02 18:00] VITALS: BP_SYST 121
[2020-05-02 19:59] VITALS: BP_SYST 133
[2020-05-02] MEDS: LORazepam 2 MG/ML VIAL IVP PRN (20:33)
[2020-05-02] MEDS ORDERED: metroNIDAZOLE 500 mg/NS 100 ML IV SCH (21:00)
[2020-05-02 22:11] VITALS: BP_SYST 74
[2020-05-02 23:50] VITALS: BP_SYST 148
[2020-05-03] VITALS (21 sets, daily range): BP systolic 124–170
[2020-05-03] MEDS: LIDOCAINE JELLY 5 ML TUBE MM SCH ×3 (01:07→22:08)
[2020-05-03 06:57] LABS: BASOPHILS % (AUTO) 0.1 % (0.0-2.0); EOSINOPHILS # (AUTO) 0.1 K/uL (0.0-0.4); EOSINOPHILS % (AUTO) 0.9 % (0.0-4.0); HEMATOCRIT 34.6 % (36-54); HEMOGLOBIN 11.2 g/dL (14.0-18.0); LYMPHOCYTES # (AUTO) 0.8 K/uL (1.0-5.5); LYMPHOCYTES % (AUTO) 5.3 % (20.5-51.5); MEAN CORPUSCULAR HEMOGLOBIN 29 pg (27-31); MEAN CORPUSCULAR HGB CONC 32 % (32-36); MEAN CORPUSCULAR VOLUME 90 fL (79.0-98.0); MONOCYTES # (AUTO) 0.8 K/uL (0.0-1.0); MONOCYTES % (AUTO) 5.6 % (1.7-9.3); NEUTROPHILS # (AUTO) 12.7 K/uL (1.8-7.7); NEUTROPHILS % (AUTO) 88.1 % (40.0-70.0); PLATELET COUNT (AUTO) 204 K/uL (130-430); RED BLOOD CELL COUNT(AUTO) 3.82 MIL/uL (4.2-6.2); RED CELL DISTRIBUTION WIDTH 13.3 % (9.0-15.0); WHITE BLOOD COUNT (AUTO) 14.4 K/uL (4.8-10.8)
[2020-05-03 07:40] LABS: CALCIUM 8.3 mg/dL (8.4-11.0); CREATININE 0.72 mg/dL (0.55-1.30); PHOSPHORUS 3.7 mg/dL (2.7-4.5); POTASSIUM 4.1 mmol/L (3.5-5.1); TOTAL BILIRUBIN 0.7 mg/dL (0.0-1.0)
[2020-05-03 08:44] LABS: C-REACTIVE PROTEIN QUANT 15.5 mg/dL (0-0.5)
[2020-05-03 09:00] LABS: ERYTHROCYTE SEDIMENTATION RATE 82 MM/HR (0-15)
[2020-05-03] MEDS: CHOLECALCIFEROL (VITAMIN D3) 5,000 UNIT TABLET PO SCH (09:00)
[2020-05-03] MEDS: LISINOPRIL 10 MG TABLET (PRINIVIL) PO SCH (09:00)
[2020-05-03] MEDS: FAMOTIDINE 20 MG TABLET PO SCH ×2 (09:00→21:19)
[2020-05-03] MEDS: ASCORBIC ACID 500 MG TABLET PO SCH ×2 (09:00→21:19)
[2020-05-03] MEDS: ATORVASTATIN 20 MG TABLET PO SCH (09:00)
[2020-05-03] MEDS: ENOXAPARIN SODIUM 40 MG/0.4 ML SYRINGE SUBCUT SCH (09:39)
[2020-05-03] MEDS: metroNIDAZOLE 500 mg/NS 100 ML IV SCH ×2 (09:40→21:19)
[2020-05-03] MEDS: CEFEPIME 0.5 GM in D5W 50 ML IV SCH ×2 (09:40→21:19)
[2020-05-03] MEDS: DEXAMETHASONE SOD PHOSPHATE 10 MG/ML VIAL IVP SCH (09:41)
[2020-05-04] VITALS (23 sets, daily range): BP systolic 119–155
[2020-05-04] MEDS: LORazepam 2 MG/ML VIAL IVP PRN (02:06)
[2020-05-04 05:12] LABS: BASOPHILS % (AUTO) 0.1 % (0.0-2.0); EOSINOPHILS # (AUTO) 0.1 K/uL (0.0-0.4); EOSINOPHILS % (AUTO) 0.6 % (0.0-4.0); HEMOGLOBIN 11.3 g/dL (14.0-18.0); LYMPHOCYTES # (AUTO) 1.2 K/uL (1.0-5.5); LYMPHOCYTES % (AUTO) 7.3 % (20.5-51.5); MEAN CORPUSCULAR HEMOGLOBIN 30 pg (27-31); MEAN CORPUSCULAR HGB CONC 33 % (32-36); MEAN CORPUSCULAR VOLUME 91 fL (79.0-98.0); MONOCYTES # (AUTO) 0.8 K/uL (0.0-1.0); MONOCYTES % (AUTO) 5.1 % (1.7-9.3); NEUTROPHILS # (AUTO) 13.8 K/uL (1.8-7.7); NEUTROPHILS % (AUTO) 86.9 % (40.0-70.0); PLATELET COUNT (AUTO) 176 K/uL (130-430); RED BLOOD CELL COUNT(AUTO) 3.75 MIL/uL (4.2-6.2); WHITE BLOOD COUNT (AUTO) 15.9 K/uL (4.8-10.8)
[2020-05-04 05:28] LABS: CREATININE 1.08 mg/dL (0.55-1.30); POTASSIUM 3.8 mmol/L (3.5-5.1); TOTAL BILIRUBIN 0.8 mg/dL (0.0-1.0)
[2020-05-04] MEDS: NACL 0.9% 1,000 ML IV SCH ×2 (06:30→20:58)
[2020-05-04] MEDS: ATORVASTATIN 20 MG TABLET PO SCH (08:20)
[2020-05-04] MEDS: FAMOTIDINE 20 MG TABLET PO SCH ×2 (08:20→20:43)
[2020-05-04] MEDS: LISINOPRIL 10 MG TABLET (PRINIVIL) PO SCH (08:21)
[2020-05-04] MEDS: CHOLECALCIFEROL (VITAMIN D3) 5,000 UNIT TABLET PO SCH (08:25)
[2020-05-04] MEDS: ASCORBIC ACID 500 MG TABLET PO SCH ×2 (08:25→20:43)
[2020-05-04] MEDS: ENOXAPARIN SODIUM 40 MG/0.4 ML SYRINGE SUBCUT SCH (08:25)
[2020-05-04] MEDS: metroNIDAZOLE 500 mg/NS 100 ML IV SCH ×2 (09:00→20:59)
[2020-05-04] MEDS: LIDOCAINE JELLY 5 ML TUBE MM SCH ×2 (09:00→20:43)
[2020-05-04] MEDS: CEFEPIME 0.5 GM in D5W 50 ML IV SCH ×2 (09:40→20:59)
[2020-05-04] MEDS: FLUCONAZOLE 100 mg/ NS 50 ML IV SCH (14:58)
[2020-05-04] MEDS ORDERED: CLOPIDOGREL BISULFATE 75 MG TABLET PO ONE (15:30)
[2020-05-05] VITALS (21 sets, daily range): BP systolic 100–152
[2020-05-05] MEDS ORDERED: ENOXAPARIN SODIUM 40 MG/0.4 ML SYRINGE ONE (08:30)
[2020-05-05] MEDS: LIDOCAINE JELLY 5 ML TUBE MM SCH ×2 (08:50→20:56)
[2020-05-05] MEDS: FAMOTIDINE 20 MG TABLET PO SCH ×2 (08:50→20:56)
[2020-05-05] MEDS: LISINOPRIL 10 MG TABLET (PRINIVIL) PO SCH (08:50)
[2020-05-05] MEDS: CLOPIDOGREL BISULFATE 75 MG TABLET PO SCH (08:50)
[2020-05-05] MEDS: ATORVASTATIN 20 MG TABLET PO SCH (08:50)
[2020-05-05] MEDS: ASCORBIC ACID 500 MG TABLET PO SCH ×2 (08:51→20:55)
[2020-05-05] MEDS: CHOLECALCIFEROL (VITAMIN D3) 5,000 UNIT TABLET PO SCH (08:51)
[2020-05-05] MEDS: ENOXAPARIN SODIUM 40 MG/0.4 ML SYRINGE SUBCUT SCH (08:52)
[2020-05-05] MEDS: CEFEPIME 0.5 GM in D5W 50 ML IV SCH ×2 (09:02→20:54)
[2020-05-05] MEDS: metroNIDAZOLE 500 mg/NS 100 ML IV SCH ×2 (10:00→20:55)
[2020-05-05] MEDS: ACETAMINOPHEN 325 MG TABLET PO PRN (11:30)
[2020-05-05] MEDS ORDERED: DOCUSATE SODIUM 100 MG/10 ML UDC PO ONE (14:45)
[2020-05-05] MEDS ORDERED: HYDROCORTISONE ACETATE 1 SUPP (ANUSOL HC) RC PRN (14:45)
[2020-05-05] MEDS: FLUCONAZOLE 100 mg/ NS 50 ML IV SCH (15:25)
[2020-05-05] MEDS: NACL 0.9% 1,000 ML IV SCH (20:27)
[2020-05-06] VITALS (18 sets, daily range): BP systolic 111–159
[2020-05-06 06:24] LABS: BASOPHILS % (AUTO) 0.3 % (0.0-2.0); EOSINOPHILS # (AUTO) 0.2 K/uL (0.0-0.4); EOSINOPHILS % (AUTO) 1.8 % (0.0-4.0); HEMATOCRIT 27.9 % (36-54); HEMOGLOBIN 9.4 g/dL (14.0-18.0); LYMPHOCYTES # (AUTO) 0.9 K/uL (1.0-5.5); LYMPHOCYTES % (AUTO) 6.7 % (20.5-51.5); MEAN CORPUSCULAR HEMOGLOBIN 30 pg (27-31); MEAN CORPUSCULAR HGB CONC 34 % (32-36); MEAN CORPUSCULAR VOLUME 89 fL (79.0-98.0); MONOCYTES # (AUTO) 0.5 K/uL (0.0-1.0); MONOCYTES % (AUTO) 3.5 % (1.7-9.3); NEUTROPHILS # (AUTO) 11.9 K/uL (1.8-7.7); NEUTROPHILS % (AUTO) 87.7 % (40.0-70.0); PLATELET COUNT (AUTO) 115 K/uL (130-430); RED BLOOD CELL COUNT(AUTO) 3.13 MIL/uL (4.2-6.2); RED CELL DISTRIBUTION WIDTH 12.9 % (9.0-15.0); WHITE BLOOD COUNT (AUTO) 13.6 K/uL (4.8-10.8)
[2020-05-06 07:20] LABS: ALANINE AMINOTRANSFERASE 70 U/L (12-78); ALBUMIN 1.7 g/dL (3.4-4.8); ASPARTATE AMINOTRANSFERASE 53 U/L (10-37); CALCIUM 7.8 mg/dL (8.4-11.0); CHLORIDE 112 mmol/L (98-107); CREATININE 0.27 mg/dL (0.55-1.30); GLUCOSE 121 mg/dL (70-99); PHOSPHORUS 2.9 mg/dL (2.7-4.5); POTASSIUM 3.5 mmol/L (3.5-5.1); SODIUM SERUM 145 mmol/L (136-145); TOTAL BILIRUBIN 1.2 mg/dL (0.0-1.0); UREA NITROGEN, BLOOD 23 mg/dL (8-21)
[2020-05-06 08:10] LABS: ERYTHROCYTE SEDIMENTATION RATE 85 MM/HR (0-15)
[2020-05-06 08:24] LABS: GFR AFRICAN AMERICAN 433 mL/min (>90)
[2020-05-06 08:25] LABS: ANION GAP < 3 (5-15)
[2020-05-06] MEDS: ASCORBIC ACID 500 MG TABLET PO SCH ×2 (08:31→19:48)
[2020-05-06] MEDS: ATORVASTATIN 20 MG TABLET PO SCH (08:31)
[2020-05-06] MEDS: CHOLECALCIFEROL (VITAMIN D3) 5,000 UNIT TABLET PO SCH (08:31)
[2020-05-06] MEDS: FAMOTIDINE 20 MG TABLET PO SCH ×2 (08:31→19:48)
[2020-05-06] MEDS: metroNIDAZOLE 500 mg/NS 100 ML IV SCH ×2 (08:31→19:48)
[2020-05-06] MEDS: DOCUSATE SODIUM 100 MG/10 ML UDC PO SCH (08:31)
[2020-05-06] MEDS: LISINOPRIL 10 MG TABLET (PRINIVIL) PO SCH (08:31)
[2020-05-06] MEDS: ENOXAPARIN SODIUM 40 MG/0.4 ML SYRINGE SUBCUT SCH (08:42)
[2020-05-06] MEDS ORDERED: ENOXAPARIN SODIUM 40 MG/0.4 ML SYRINGE ONE (08:42)
[2020-05-06] MEDS: LIDOCAINE JELLY 5 ML TUBE MM SCH ×2 (08:51→19:48)
[2020-05-06] MEDS: CEFEPIME 0.5 GM in D5W 50 ML IV SCH (09:00)
[2020-05-06] MEDS: CLOPIDOGREL BISULFATE 75 MG TABLET PO SCH (09:00)
[2020-05-06] MEDS: ACETAMINOPHEN 325 MG TABLET PO PRN (10:01)
[2020-05-06] MEDS ORDERED: CLOPIDOGREL BISULFATE 75 MG TABLET ONE (10:42)
[2020-05-06 10:56] LABS: C-REACTIVE PROTEIN QUANT 19.4 mg/dL (0-0.5)
[2020-05-06] MEDS: FLUCONAZOLE 100 mg/ NS 50 ML IV SCH (13:47)
[2020-05-06] MEDS: NACL 0.9% 1,000 ML IV SCH (19:47)
[2020-05-07] VITALS (21 sets, daily range): BP systolic 87–175
[2020-05-07] MEDS ORDERED: ENOXAPARIN SODIUM 40 MG/0.4 ML SYRINGE ONE (07:35)
[2020-05-07] MEDS: LISINOPRIL 10 MG TABLET (PRINIVIL) PO SCH (08:17)
[2020-05-07] MEDS: ATORVASTATIN 20 MG TABLET PO SCH (08:17)
[2020-05-07] MEDS: LIDOCAINE JELLY 5 ML TUBE MM SCH ×2 (08:17→21:17)
[2020-05-07] MEDS: DOCUSATE SODIUM 100 MG/10 ML UDC PO SCH (08:17)
[2020-05-07] MEDS: FAMOTIDINE 20 MG TABLET PO SCH ×2 (08:17→21:19)
[2020-05-07] MEDS: ASCORBIC ACID 500 MG TABLET PO SCH ×2 (08:17→21:19)
[2020-05-07] MEDS: CHOLECALCIFEROL (VITAMIN D3) 5,000 UNIT TABLET PO SCH (08:18)
[2020-05-07] MEDS: ENOXAPARIN SODIUM 40 MG/0.4 ML SYRINGE SUBCUT SCH (08:18)
[2020-05-07] MEDS: CLOPIDOGREL BISULFATE 75 MG TABLET PO SCH (09:00)
[2020-05-07] MEDS: metroNIDAZOLE 500 mg/NS 100 ML IV SCH ×2 (10:02→21:17)
[2020-05-07] MEDS: ACETAMINOPHEN 325 MG TABLET PO PRN (11:08)
[2020-05-07] MEDS: FLUCONAZOLE 100 mg/ NS 50 ML IV SCH (13:01)
[2020-05-07] MEDS ORDERED: NALOXONE HCL 0.4 MG/ML AMP (NARCAN) IVP PRN (13:30)
[2020-05-07] MEDS ORDERED: MORPHINE 2 MG/ML INJ. SYRINGE ONE (13:31)
[2020-05-07] MEDS: MORPHINE 2 MG/ML INJ. SYRINGE IVP PRN (18:03)
[2020-05-07] MEDS ORDERED: LORazepam 1 MG TABLET ONE (19:16)
[2020-05-07] MEDS: NACL 0.9% 1,000 ML IV SCH (20:50)
[2020-05-08] VITALS (17 sets, daily range): BP systolic 102–139
[2020-05-08 06:39] LABS: ALBUMIN 1.6 g/dL (3.4-4.8); CREATININE 0.46 mg/dL (0.55-1.30); POTASSIUM 3.9 mmol/L (3.5-5.1); TOTAL BILIRUBIN 0.4 mg/dL (0.0-1.0)
[2020-05-08 06:45] LABS: BASOPHILS # (AUTO) 0.1 K/uL (0.0-0.2); BASOPHILS % (AUTO) 0.4 % (0.0-2.0); EOSINOPHILS # (AUTO) 0.4 K/uL (0.0-0.4); EOSINOPHILS % (AUTO) 2.5 % (0.0-4.0); HEMATOCRIT 28.2 % (36-54); HEMOGLOBIN 9.3 g/dL (14.0-18.0); LYMPHOCYTES % (AUTO) 6.5 % (20.5-51.5); MEAN CORPUSCULAR HEMOGLOBIN 30 pg (27-31); MEAN CORPUSCULAR HGB CONC 33 % (32-36); MEAN CORPUSCULAR VOLUME 91 fL (79.0-98.0); MONOCYTES # (AUTO) 0.6 K/uL (0.0-1.0); MONOCYTES % (AUTO) 3.6 % (1.7-9.3); NEUTROPHILS # (AUTO) 13.5 K/uL (1.8-7.7); PLATELET COUNT (AUTO) 138 K/uL (130-430); RED BLOOD CELL COUNT(AUTO) 3.12 MIL/uL (4.2-6.2); RED CELL DISTRIBUTION WIDTH 12.9 % (9.0-15.0); WHITE BLOOD COUNT (AUTO) 15.5 K/uL (4.8-10.8)
[2020-05-08 07:45] LABS: C-REACTIVE PROTEIN QUANT 24.3 mg/dL (0-0.5)
[2020-05-08] MEDS: LORazepam 1 MG TABLET PO PRN ×2 (07:47→14:50)
[2020-05-08] MEDS ORDERED: LORazepam 1 MG TABLET ONE ×2 (07:59→14:36)
[2020-05-08] MEDS: CHOLECALCIFEROL (VITAMIN D3) 5,000 UNIT TABLET PO SCH (08:07)
[2020-05-08] MEDS: ASCORBIC ACID 500 MG TABLET PO SCH ×2 (08:07→21:22)
[2020-05-08] MEDS: FAMOTIDINE 20 MG TABLET PO SCH ×2 (08:07→21:22)
[2020-05-08] MEDS: ATORVASTATIN 20 MG TABLET PO SCH (08:08)
[2020-05-08] MEDS: ENOXAPARIN SODIUM 40 MG/0.4 ML SYRINGE SUBCUT SCH (09:00)
[2020-05-08] MEDS: CLOPIDOGREL BISULFATE 75 MG TABLET PO SCH (09:00)
[2020-05-08] MEDS: LIDOCAINE JELLY 5 ML TUBE MM SCH ×2 (09:08→21:22)
[2020-05-08] MEDS: LISINOPRIL 10 MG TABLET (PRINIVIL) PO SCH (09:08)
[2020-05-08] MEDS: DOCUSATE SODIUM 100 MG/10 ML UDC PO SCH (09:08)
[2020-05-08] MEDS: metroNIDAZOLE 500 mg/NS 100 ML IV SCH ×2 (09:14→21:09)
[2020-05-08] MEDS: FLUCONAZOLE 100 mg/ NS 50 ML IV SCH (14:52)
[2020-05-08] MEDS: CEFEPIME 0.5 GM in D5W 50 ML IV SCH ×2 (21:00→22:30)
[2020-05-08] MEDS: NACL 0.9% 1,000 ML IV SCH (23:15)
[2020-05-09 08:00] VITALS: BP_SYST 127
[2020-05-09] MEDS: metroNIDAZOLE 500 mg/NS 100 ML IV SCH ×2 (08:33→21:00)
[2020-05-09] MEDS: LIDOCAINE JELLY 5 ML TUBE MM SCH ×2 (08:33→21:00)
[2020-05-09] MEDS: DOCUSATE SODIUM 100 MG/10 ML UDC PO SCH (08:33)
[2020-05-09] MEDS: ASCORBIC ACID 500 MG TABLET PO SCH ×2 (08:34→21:00)
[2020-05-09] MEDS: ATORVASTATIN 20 MG TABLET PO SCH (08:34)
[2020-05-09] MEDS: FAMOTIDINE 20 MG TABLET PO SCH ×2 (08:34→21:00)
[2020-05-09] MEDS: CHOLECALCIFEROL (VITAMIN D3) 5,000 UNIT TABLET PO SCH (08:34)
[2020-05-09] MEDS: LISINOPRIL 10 MG TABLET (PRINIVIL) PO SCH (08:34)
[2020-05-09] MEDS: CLOPIDOGREL BISULFATE 75 MG TABLET PO SCH (08:35)
[2020-05-09] MEDS: ENOXAPARIN SODIUM 40 MG/0.4 ML SYRINGE SUBCUT SCH (08:40)
[2020-05-09] MEDS: CEFEPIME 0.5 GM in D5W 50 ML IV SCH ×2 (10:27→21:00)
[2020-05-09 12:00] VITALS: BP_SYST 132
[2020-05-09] MEDS: FLUCONAZOLE 100 mg/ NS 50 ML IV SCH (14:42)
[2020-05-09 16:00] VITALS: BP_SYST 126
[2020-05-09 20:00] VITALS: BP_SYST 130
[2020-05-09] MEDS: NACL 0.9% 1,000 ML IV SCH (20:15)
[2020-05-10] MEDS ORDERED: CEFEPIME 1 GM/VIAL (MAXIPIME) ONE (00:21)
[2020-05-10 02:00] VITALS: BP_SYST 139
[2020-05-10 08:00] VITALS: BP_SYST 131
[2020-05-10 09:01] LABS: BASOPHILS # (AUTO) 0.1 K/uL (0.0-0.2); BASOPHILS % (AUTO) 0.5 % (0.0-2.0); EOSINOPHILS % (AUTO) 0.3 % (0.0-4.0); HEMOGLOBIN 9.4 g/dL (14.0-18.0); LYMPHOCYTES # (AUTO) 0.9 K/uL (1.0-5.5); LYMPHOCYTES % (AUTO) 6.7 % (20.5-51.5); MEAN CORPUSCULAR HEMOGLOBIN 30 pg (27-31); MEAN CORPUSCULAR HGB CONC 32 % (32-36); MEAN CORPUSCULAR VOLUME 91 fL (79.0-98.0); MONOCYTES # (AUTO) 0.8 K/uL (0.0-1.0); MONOCYTES % (AUTO) 5.5 % (1.7-9.3); NEUTROPHILS # (AUTO) 12.2 K/uL (1.8-7.7); PLATELET COUNT (AUTO) 144 K/uL (130-430); RED BLOOD CELL COUNT(AUTO) 3.19 MIL/uL (4.2-6.2); RED CELL DISTRIBUTION WIDTH 13.1 % (9.0-15.0)
[2020-05-10 09:17] LABS: ALBUMIN 1.7 g/dL (3.4-4.8); CALCIUM 7.6 mg/dL (8.4-11.0); CREATININE 0.59 mg/dL (0.55-1.30); TOTAL BILIRUBIN 0.4 mg/dL (0.0-1.0)
[2020-05-10] MEDS: CHOLECALCIFEROL (VITAMIN D3) 5,000 UNIT TABLET PO SCH (09:30)
[2020-05-10] MEDS: ATORVASTATIN 20 MG TABLET PO SCH (09:30)
[2020-05-10] MEDS: CLOPIDOGREL BISULFATE 75 MG TABLET PO SCH (09:30)
[2020-05-10] MEDS: ENOXAPARIN SODIUM 40 MG/0.4 ML SYRINGE SUBCUT SCH (09:30)
[2020-05-10] MEDS: LISINOPRIL 10 MG TABLET (PRINIVIL) PO SCH (09:30)
[2020-05-10] MEDS: ASCORBIC ACID 500 MG TABLET PO SCH ×2 (09:30→20:50)
[2020-05-10] MEDS: FAMOTIDINE 20 MG TABLET PO SCH ×2 (09:30→20:46)
[2020-05-10] MEDS: DOCUSATE SODIUM 100 MG/10 ML UDC PO SCH (09:30)
[2020-05-10 09:46] LABS: C-REACTIVE PROTEIN QUANT 14.5 mg/dL (0-0.5)
[2020-05-10] MEDS: metroNIDAZOLE 500 mg/NS 100 ML IV SCH ×2 (10:00→22:29)
[2020-05-10 10:03] LABS: TOTAL IRON BIND. CAPACITY 113 ug/dL (250-450)
[2020-05-10] MEDS ORDERED: CLOPIDOGREL BISULFATE 75 MG TABLET ONE (10:09)
[2020-05-10] MEDS: CEFEPIME 0.5 GM in D5W 50 ML IV SCH ×2 (11:00→20:49)
[2020-05-10] MEDS ORDERED: FUROSEMIDE 20 MG/2 ML VIAL IVP ONE (11:00)
[2020-05-10 12:00] VITALS: BP_SYST 116
[2020-05-10] MEDS: NACL 0.9% 1,000 ML IV SCH (12:00)
[2020-05-10] MEDS: FLUCONAZOLE 100 mg/ NS 50 ML IV SCH (15:06)
[2020-05-10] MEDS: MORPHINE 2 MG/ML INJ. SYRINGE IVP PRN ×2 (15:11→20:48)
[2020-05-10 16:00] VITALS: BP_SYST 130
[2020-05-10] MEDS: LIDOCAINE JELLY 5 ML TUBE MM SCH ×2 (19:30→20:47)
[2020-05-10] MEDS: FUROSEMIDE 20 MG/2 ML VIAL IVP SCH (20:50)
[2020-05-10 20:51] VITALS: BP_SYST 134
[2020-05-10] MEDS: LORazepam 1 MG TABLET PO PRN (22:46)
[2020-05-11] VITALS: BP_SYST 127
[2020-05-11 07:52] VITALS: BP_SYST 136
[2020-05-11 08:07] LABS: FOLATE (FOLIC ACID) 6.5 ng/mL (>3.0)
[2020-05-11] MEDS: MORPHINE 2 MG/ML INJ. SYRINGE IVP PRN ×2 (08:29→21:53)
[2020-05-11] MEDS: LIDOCAINE JELLY 5 ML TUBE MM SCH ×2 (08:53→21:51)
[2020-05-11] MEDS: ENOXAPARIN SODIUM 40 MG/0.4 ML SYRINGE SUBCUT SCH (08:54)
[2020-05-11] MEDS: CEFEPIME 0.5 GM in D5W 50 ML IV SCH ×2 (08:56→22:00)
[2020-05-11] MEDS: FUROSEMIDE 20 MG/2 ML VIAL IVP SCH ×2 (08:58→21:51)
[2020-05-11] MEDS: ATORVASTATIN 20 MG TABLET PO SCH (08:58)
[2020-05-11] MEDS: LISINOPRIL 10 MG TABLET (PRINIVIL) PO SCH (08:59)
[2020-05-11] MEDS: ASCORBIC ACID 500 MG TABLET PO SCH ×2 (08:59→21:51)
[2020-05-11] MEDS: FAMOTIDINE 20 MG TABLET PO SCH ×2 (08:59→21:51)
[2020-05-11] MEDS: DOCUSATE SODIUM 100 MG/10 ML UDC PO SCH (09:01)
[2020-05-11] MEDS: metroNIDAZOLE 500 mg/NS 100 ML IV SCH ×2 (09:27→21:50)
[2020-05-11] MEDS: CLOPIDOGREL BISULFATE 75 MG TABLET PO SCH (09:27)
[2020-05-11] MEDS: CHOLECALCIFEROL (VITAMIN D3) 5,000 UNIT TABLET PO SCH (09:27)
[2020-05-11] MEDS: BALSAM PERU/CASTOR OIL 60 GM OINT...G. TP SCH (09:28)
[2020-05-11 13:27] VITALS: BP_SYST 128
[2020-05-11] MEDS: FLUCONAZOLE 100 mg/ NS 50 ML IV SCH (14:21)
[2020-05-11 17:10] VITALS: BP_SYST 118
[2020-05-11 20:00] VITALS: BP_SYST 148
[2020-05-11] MEDS: NACL 0.9% 1,000 ML IV SCH (21:50)
[2020-05-12] VITALS: BP_SYST 111
[2020-05-12] MEDS: MORPHINE 2 MG/ML INJ. SYRINGE IVP PRN ×2 (05:19→20:18)
[2020-05-12 07:49] LABS: HEMATOCRIT 28.6 % (36-54); HEMOGLOBIN 9.5 g/dL (14.0-18.0); MEAN CORPUSCULAR HEMOGLOBIN 30 pg (27-31); MEAN CORPUSCULAR HGB CONC 33 % (32-36); MEAN CORPUSCULAR VOLUME 90 fL (79.0-98.0); PLATELET COUNT (AUTO) 183 K/uL (130-430); RED CELL DISTRIBUTION WIDTH 13.3 % (9.0-15.0); WHITE BLOOD COUNT (AUTO) 12.5 K/uL (4.8-10.8)
[2020-05-12 08:00] VITALS: BP_SYST 129
[2020-05-12] MEDS: BALSAM PERU/CASTOR OIL 60 GM OINT...G. TP SCH (08:34)
[2020-05-12] MEDS: metroNIDAZOLE 500 mg/NS 100 ML IV SCH ×2 (08:36→20:15)
[2020-05-12 08:38] LABS: ALBUMIN 1.7 g/dL (3.4-4.8); CALCIUM 7.4 mg/dL (8.4-11.0); CREATININE 0.53 mg/dL (0.55-1.30); PHOSPHORUS 2.9 mg/dL (2.7-4.5); POTASSIUM 3.3 mmol/L (3.5-5.1); TOTAL BILIRUBIN 0.4 mg/dL (0.0-1.0)
[2020-05-12] MEDS: FUROSEMIDE 20 MG/2 ML VIAL IVP SCH ×2 (08:38→20:16)
[2020-05-12] MEDS: DOCUSATE SODIUM 100 MG/10 ML UDC PO SCH (08:38)
[2020-05-12] MEDS: LIDOCAINE JELLY 5 ML TUBE MM SCH ×2 (08:38→20:16)
[2020-05-12] MEDS: LISINOPRIL 10 MG TABLET (PRINIVIL) PO SCH (08:39)
[2020-05-12] MEDS: ASCORBIC ACID 500 MG TABLET PO SCH ×2 (08:39→20:16)
[2020-05-12] MEDS: ENOXAPARIN SODIUM 40 MG/0.4 ML SYRINGE SUBCUT SCH (08:42)
[2020-05-12] MEDS: CHOLECALCIFEROL (VITAMIN D3) 5,000 UNIT TABLET PO SCH (08:43)
[2020-05-12] MEDS: FAMOTIDINE 20 MG TABLET PO SCH ×2 (08:43→20:16)
[2020-05-12] MEDS: ATORVASTATIN 20 MG TABLET PO SCH (08:45)
[2020-05-12 09:22] LABS: C-REACTIVE PROTEIN QUANT 4.5 mg/dL (0-0.5)
[2020-05-12] MEDS: CLOPIDOGREL BISULFATE 75 MG TABLET PO SCH (09:57)
[2020-05-12] MEDS: CEFEPIME 0.5 GM in D5W 50 ML IV SCH ×2 (09:59→22:10)
[2020-05-12] MEDS: LORazepam 1 MG TABLET PO PRN (11:05)
[2020-05-12 11:32] LABS: ERYTHROCYTE SEDIMENTATION RATE 63 MM/HR (0-15)
[2020-05-12 11:58] LABS: BAND % (MANUAL) 12 % (0-6); BASOPHILS % (MANUAL) 0 % (0-2); EOSINOPHILS % (MANUAL) 0 % (0-7); LYMPHOCYTES % (MANUAL) 7 % (20-46); METAMYELOCYTES % 3 % (0-0); MONOCYTES % (MANUAL) 7 % (0-11)
[2020-05-12 12:00] VITALS: BP_SYST 121
[2020-05-12] MEDS: FLUCONAZOLE 100 mg/ NS 50 ML IV SCH (14:00)
[2020-05-12 16:00] VITALS: BP_SYST 125
[2020-05-12] MEDS ORDERED: KCL 20 mEq in 100 mL (PREMIX) 100 ML IV ONE (19:30)
[2020-05-12 20:00] VITALS: BP_SYST 129
[2020-05-12] MEDS: NACL 0.9% 1,000 ML IV SCH (20:15)
[2020-05-13] VITALS: BP_SYST 122
[2020-05-13 08:05] VITALS: BP_SYST 121
[2020-05-13] MEDS: DOCUSATE SODIUM 100 MG/10 ML UDC PO SCH (08:33)
[2020-05-13] MEDS: FAMOTIDINE 20 MG TABLET PO SCH ×2 (08:33→20:37)
[2020-05-13] MEDS: metroNIDAZOLE 500 mg/NS 100 ML IV SCH ×2 (08:33→23:28)
[2020-05-13] MEDS: POTASSIUM CHLORIDE 20 MEQ/PKT PACKET PO SCH (08:34)
[2020-05-13] MEDS: LISINOPRIL 10 MG TABLET (PRINIVIL) PO SCH (08:34)
[2020-05-13] MEDS: ASCORBIC ACID 500 MG TABLET PO SCH ×2 (08:34→20:47)
[2020-05-13] MEDS: ATORVASTATIN 20 MG TABLET PO SCH (08:34)
[2020-05-13] MEDS: FUROSEMIDE 20 MG/2 ML VIAL IVP SCH ×2 (08:35→20:36)
[2020-05-13] MEDS: ENOXAPARIN SODIUM 40 MG/0.4 ML SYRINGE SUBCUT SCH (08:36)
[2020-05-13] MEDS: LIDOCAINE JELLY 5 ML TUBE MM SCH ×2 (08:36→20:37)
[2020-05-13] MEDS: BALSAM PERU/CASTOR OIL 60 GM OINT...G. TP SCH (08:37)
[2020-05-13] MEDS ORDERED: CLOPIDOGREL BISULFATE 75 MG TABLET ONE (08:43)
[2020-05-13] MEDS: CLOPIDOGREL BISULFATE 75 MG TABLET PO SCH (08:43)
[2020-05-13] MEDS: CHOLECALCIFEROL (VITAMIN D3) 5,000 UNIT TABLET PO SCH (08:44)
[2020-05-13] MEDS: CEFEPIME 0.5 GM in D5W 50 ML IV SCH ×2 (09:44→20:37)
[2020-05-13] MEDS: MORPHINE 2 MG/ML INJ. SYRINGE IVP PRN ×2 (10:01→23:40)
[2020-05-13 10:35] VITALS: BP_SYST 121
[2020-05-13] MEDS: VANCOMYCIN HCL 1,000 MG in NS 250 ML IV SCH ×2 (12:43→23:28)
[2020-05-13 16:00] VITALS: BP_SYST 99
[2020-05-13 20:00] VITALS: BP_SYST 106
[2020-05-14] VITALS: BP_SYST 116
[2020-05-14] MEDS: FUROSEMIDE 20 MG/2 ML VIAL IVP SCH ×3 (00:36→20:50)
[2020-05-14 06:47] LABS: BASOPHILS # (AUTO) 0.1 K/uL (0.0-0.2); BASOPHILS % (AUTO) 0.4 % (0.0-2.0); EOSINOPHILS # (AUTO) 0.3 K/uL (0.0-0.4); EOSINOPHILS % (AUTO) 2.1 % (0.0-4.0); HEMATOCRIT 25.9 % (36-54); HEMOGLOBIN 8.6 g/dL (14.0-18.0); LYMPHOCYTES # (AUTO) 1.1 K/uL (1.0-5.5); LYMPHOCYTES % (AUTO) 8.7 % (20.5-51.5); MEAN CORPUSCULAR HEMOGLOBIN 30 pg (27-31); MEAN CORPUSCULAR HGB CONC 33 % (32-36); MEAN CORPUSCULAR VOLUME 90 fL (79.0-98.0); MONOCYTES # (AUTO) 0.6 K/uL (0.0-1.0); MONOCYTES % (AUTO) 4.7 % (1.7-9.3); NEUTROPHILS # (AUTO) 10.4 K/uL (1.8-7.7); NEUTROPHILS % (AUTO) 84.1 % (40.0-70.0); PLATELET COUNT (AUTO) 210 K/uL (130-430); RED BLOOD CELL COUNT(AUTO) 2.88 MIL/uL (4.2-6.2); RED CELL DISTRIBUTION WIDTH 13.4 % (9.0-15.0); WHITE BLOOD COUNT (AUTO) 12.3 K/uL (4.8-10.8)
[2020-05-14 07:26] LABS: ALBUMIN 1.6 g/dL (3.4-4.8); CALCIUM 7.6 mg/dL (8.4-11.0); CREATININE 0.41 mg/dL (0.55-1.30); PHOSPHORUS 2.4 mg/dL (2.7-4.5); POTASSIUM 3.6 mmol/L (3.5-5.1); TOTAL BILIRUBIN 0.6 mg/dL (0.0-1.0)
[2020-05-14] MEDS: NACL 0.9% 1,000 ML IV SCH (07:27)
[2020-05-14 08:02] VITALS: BP_SYST 113
[2020-05-14 08:28] LABS: ERYTHROCYTE SEDIMENTATION RATE 95 MM/HR (0-15)
[2020-05-14] MEDS: FAMOTIDINE 20 MG TABLET PO SCH ×2 (08:38→20:50)
[2020-05-14] MEDS: ENOXAPARIN SODIUM 40 MG/0.4 ML SYRINGE SUBCUT SCH (08:38)
[2020-05-14] MEDS: ASCORBIC ACID 500 MG TABLET PO SCH ×2 (08:38→20:50)
[2020-05-14] MEDS: POTASSIUM CHLORIDE 20 MEQ/PKT PACKET PO SCH (08:38)
[2020-05-14] MEDS: ATORVASTATIN 20 MG TABLET PO SCH (08:38)
[2020-05-14] MEDS: LISINOPRIL 10 MG TABLET (PRINIVIL) PO SCH (08:39)
[2020-05-14] MEDS: DOCUSATE SODIUM 100 MG/10 ML UDC PO SCH (08:39)
[2020-05-14] MEDS: CHOLECALCIFEROL (VITAMIN D3) 5,000 UNIT TABLET PO SCH (08:39)
[2020-05-14] MEDS: CEFEPIME 0.5 GM in D5W 50 ML IV SCH ×2 (08:40→20:49)
[2020-05-14] MEDS: metroNIDAZOLE 500 mg/NS 100 ML IV SCH (08:40)
[2020-05-14] MEDS: LIDOCAINE JELLY 5 ML TUBE MM SCH ×2 (08:52→20:42)
[2020-05-14] MEDS: BALSAM PERU/CASTOR OIL 60 GM OINT...G. TP SCH (09:00)
[2020-05-14] MEDS: CLOPIDOGREL BISULFATE 75 MG TABLET PO SCH (10:01)
[2020-05-14] MEDS: VANCOMYCIN HCL 1,000 MG in NS 250 ML IV SCH ×2 (11:42→23:44)
[2020-05-14 12:26] LABS: C-REACTIVE PROTEIN QUANT 13.4 mg/dL (0-0.5)
[2020-05-14 13:20] VITALS: BP_SYST 97
[2020-05-14] MEDS: MORPHINE 2 MG/ML INJ. SYRINGE IVP PRN ×2 (17:02→20:54)
[2020-05-14 17:45] VITALS: BP_SYST 122
[2020-05-14 20:00] VITALS: BP_SYST 124
[2020-05-14] MEDS ORDERED: IPRATROPIUM/ALBUTEROL SULFATE 3 ML AMPUL.NEB (DUONEB) ONE (23:11)
[2020-05-14] MEDS: ACETAMINOPHEN 325 MG TABLET PO PRN (23:45)
[2020-05-15 00:57] VITALS: BP_SYST 126
[2020-05-15] MEDS: LORazepam 1 MG TABLET PO PRN (01:41)
[2020-05-15] MEDS ORDERED: ALBUTEROL SULFATE 0.083% 2.5 MG/3 ML VIAL.NEB INH ONE (05:17)
[2020-05-15 07:36] VITALS: BP_SYST 122
[2020-05-15] MEDS: ATORVASTATIN 20 MG TABLET PO SCH (08:45)
[2020-05-15] MEDS: DOCUSATE SODIUM 100 MG/10 ML UDC PO SCH (08:45)
[2020-05-15] MEDS: FAMOTIDINE 20 MG TABLET PO SCH ×2 (08:45→21:00)
[2020-05-15] MEDS: ASCORBIC ACID 500 MG TABLET PO SCH ×2 (08:46→21:00)
[2020-05-15] MEDS: LISINOPRIL 10 MG TABLET (PRINIVIL) PO SCH (08:46)
[2020-05-15] MEDS: CHOLECALCIFEROL (VITAMIN D3) 5,000 UNIT TABLET PO SCH (08:46)
[2020-05-15] MEDS: POTASSIUM CHLORIDE 20 MEQ/PKT PACKET PO SCH (08:46)
[2020-05-15] MEDS: BALSAM PERU/CASTOR OIL 60 GM OINT...G. TP SCH (08:47)
[2020-05-15] MEDS: FUROSEMIDE 20 MG/2 ML VIAL IVP SCH ×2 (08:47→21:00)
[2020-05-15] MEDS ORDERED: CLOPIDOGREL BISULFATE 75 MG TABLET ONE (08:48)
[2020-05-15] MEDS: CLOPIDOGREL BISULFATE 75 MG TABLET PO SCH (08:48)
[2020-05-15] MEDS: CEFEPIME 0.5 GM in D5W 50 ML IV SCH (08:49)
[2020-05-15] MEDS: LIDOCAINE JELLY 5 ML TUBE MM SCH ×2 (08:49→21:00)
[2020-05-15] MEDS: ENOXAPARIN SODIUM 40 MG/0.4 ML SYRINGE SUBCUT SCH (08:49)
[2020-05-15 10:13] VITALS: BP_SYST 122
[2020-05-15] MEDS: VANCOMYCIN HCL 1,000 MG in NS 250 ML IV SCH (12:08)
[2020-05-15 12:12] VITALS: BP_SYST 125
[2020-05-15 17:36] VITALS: BP_SYST 131
[2020-05-15 20:00] VITALS: BP_SYST 129
[2020-05-15] MEDS: VANCOMYCIN HCL 1,000 MG in D5W 250 ML IV SCH (20:00)
[2020-05-15] MEDS ORDERED: VANCOMYCIN HCL 1,000 MG in NS 250 ML IV SCH (20:00)
[2020-05-15] MEDS: NACL 0.9% 1,000 ML IV SCH (20:15)
[2020-05-16] MEDS ORDERED: VANCOMYCIN HCL 1,000 MG in D5W 250 ML IV SCH (04:00)
[2020-05-16] MEDS: VANCOMYCIN HCL 1,000 MG in D5W 250 ML IV SCH ×3 (04:00→21:22)
[2020-05-16 04:21] VITALS: BP_SYST 132
[2020-05-16 06:55] LABS: BASOPHILS % (AUTO) 0.4 % (0.0-2.0); EOSINOPHILS # (AUTO) 0.3 K/uL (0.0-0.4); EOSINOPHILS % (AUTO) 2.4 % (0.0-4.0); HEMATOCRIT 27.3 % (36-54); HEMOGLOBIN 9.1 g/dL (14.0-18.0); LYMPHOCYTES # (AUTO) 1.2 K/uL (1.0-5.5); LYMPHOCYTES % (AUTO) 10.2 % (20.5-51.5); MEAN CORPUSCULAR HEMOGLOBIN 30 pg (27-31); MEAN CORPUSCULAR HGB CONC 33 % (32-36); MEAN CORPUSCULAR VOLUME 89 fL (79.0-98.0); MONOCYTES # (AUTO) 0.9 K/uL (0.0-1.0); MONOCYTES % (AUTO) 7.2 % (1.7-9.3); NEUTROPHILS # (AUTO) 9.7 K/uL (1.8-7.7); NEUTROPHILS % (AUTO) 79.8 % (40.0-70.0); PLATELET COUNT (AUTO) 249 K/uL (130-430); RED BLOOD CELL COUNT(AUTO) 3.07 MIL/uL (4.2-6.2); RED CELL DISTRIBUTION WIDTH 13.5 % (9.0-15.0); WHITE BLOOD COUNT (AUTO) 12.2 K/uL (4.8-10.8)
[2020-05-16 07:28] LABS: ALBUMIN 1.6 g/dL (3.4-4.8); CALCIUM 7.8 mg/dL (8.4-11.0); CREATININE 0.39 mg/dL (0.55-1.30); PHOSPHORUS 2.5 mg/dL (2.7-4.5); POTASSIUM 3.4 mmol/L (3.5-5.1); TOTAL BILIRUBIN 0.5 mg/dL (0.0-1.0)
[2020-05-16 08:19] LABS: C-REACTIVE PROTEIN QUANT 20.5 mg/dL (0-0.5)
[2020-05-16] MEDS: LIDOCAINE JELLY 5 ML TUBE MM SCH ×2 (08:30→21:37)
[2020-05-16] MEDS: ASCORBIC ACID 500 MG TABLET PO SCH ×2 (08:30→21:37)
[2020-05-16] MEDS: DOCUSATE SODIUM 100 MG/10 ML UDC PO SCH (08:31)
[2020-05-16] MEDS: POTASSIUM CHLORIDE 20 MEQ/PKT PACKET PO SCH ×2 (08:31→21:37)
[2020-05-16] MEDS: ATORVASTATIN 20 MG TABLET PO SCH (08:31)
[2020-05-16] MEDS: FAMOTIDINE 20 MG TABLET PO SCH ×2 (08:31→21:00)
[2020-05-16] MEDS: CHOLECALCIFEROL (VITAMIN D3) 5,000 UNIT TABLET PO SCH (08:40)
[2020-05-16] MEDS: ENOXAPARIN SODIUM 40 MG/0.4 ML SYRINGE SUBCUT SCH (08:41)
[2020-05-16] MEDS: LISINOPRIL 10 MG TABLET (PRINIVIL) PO SCH (09:00)
[2020-05-16] MEDS: CLOPIDOGREL BISULFATE 75 MG TABLET PO SCH (09:00)
[2020-05-16] MEDS: FUROSEMIDE 20 MG/2 ML VIAL IVP SCH ×2 (09:00→21:37)
[2020-05-16] MEDS: BALSAM PERU/CASTOR OIL 60 GM OINT...G. TP SCH (09:00)
[2020-05-16] MEDS: MORPHINE 2 MG/ML INJ. SYRINGE IVP PRN ×2 (09:20→14:00)
[2020-05-16 10:35] LABS: ERYTHROCYTE SEDIMENTATION RATE 114 MM/HR (0-15)
[2020-05-16 11:53] VITALS: BP_SYST 93
[2020-05-16 12:10] VITALS: BP_SYST 159
[2020-05-16] MEDS: NACL 0.9% 1,000 ML IV SCH (13:57)
[2020-05-16 16:10] VITALS: BP_SYST 98
[2020-05-16] MEDS: SOD FERRIC GLUC COMPLEX/SUC 125 MG in NS 100 ML IV SCH (19:09)
[2020-05-16 21:15] VITALS: BP_SYST 116
[2020-05-17] VITALS: BP_SYST 105
[2020-05-17] MEDS: VANCOMYCIN HCL 1,000 MG in D5W 250 ML IV SCH ×3 (04:20→20:00)
[2020-05-17] MEDS: BALSAM PERU/CASTOR OIL 60 GM OINT...G. TP SCH (07:48)
[2020-05-17] MEDS: LIDOCAINE JELLY 5 ML TUBE MM SCH ×2 (07:49→21:00)
[2020-05-17 08:00] VITALS: BP_SYST 118
[2020-05-17] MEDS: ATORVASTATIN 20 MG TABLET PO SCH (08:48)
[2020-05-17] MEDS: ASCORBIC ACID 500 MG TABLET PO SCH ×2 (08:48→21:00)
[2020-05-17] MEDS: ENOXAPARIN SODIUM 40 MG/0.4 ML SYRINGE SUBCUT SCH (08:53)
[2020-05-17] MEDS: DOCUSATE SODIUM 100 MG/10 ML UDC PO SCH (08:55)
[2020-05-17] MEDS: POTASSIUM CHLORIDE 20 MEQ/PKT PACKET PO SCH (08:55)
[2020-05-17] MEDS: FAMOTIDINE 20 MG TABLET PO SCH ×2 (08:55→21:00)
[2020-05-17] MEDS: FUROSEMIDE 20 MG/2 ML VIAL IVP SCH ×2 (08:56→21:00)
[2020-05-17] MEDS: CHOLECALCIFEROL (VITAMIN D3) 5,000 UNIT TABLET PO SCH (09:24)
[2020-05-17] MEDS: LISINOPRIL 10 MG TABLET (PRINIVIL) PO SCH (09:24)
[2020-05-17 13:05] LABS: ALBUMIN 1.6 g/dL (3.4-4.8); CALCIUM 8.4 mg/dL (8.4-11.0); CREATININE 0.45 mg/dL (0.55-1.30); POTASSIUM 4.6 mmol/L (3.5-5.1); TOTAL BILIRUBIN 0.5 mg/dL (0.0-1.0)
[2020-05-17 13:19] VITALS: BP_SYST 113
[2020-05-17] MEDS: CLOPIDOGREL BISULFATE 75 MG TABLET PO SCH (13:53)
[2020-05-17] MEDS ORDERED: CLOPIDOGREL BISULFATE 75 MG TABLET ONE (13:53)
[2020-05-17] MEDS: SOD FERRIC GLUC COMPLEX/SUC 125 MG in NS 100 ML IV SCH (16:00)
[2020-05-17 17:16] VITALS: BP_SYST 114
[2020-05-17 17:48] LABS: HEMATOCRIT 24.7 % (36-54); HEMOGLOBIN 8.4 g/dL (14.0-18.0); MEAN CORPUSCULAR HEMOGLOBIN 30 pg (27-31); MEAN CORPUSCULAR HGB CONC 34 % (32-36); MEAN CORPUSCULAR VOLUME 88 fL (79.0-98.0); PLATELET COUNT (AUTO) 272 K/uL (130-430); RED CELL DISTRIBUTION WIDTH 14.1 % (9.0-15.0); WHITE BLOOD COUNT (AUTO) 11.5 K/uL (4.8-10.8)
[2020-05-17 18:11] LABS: BAND % (MANUAL) 4 % (0-6); BASOPHILS % (MANUAL) 0 % (0-2); EOSINOPHILS % (MANUAL) 0 % (0-7); LYMPHOCYTES % (MANUAL) 8 % (20-46); METAMYELOCYTES % 0 % (0-0); MONOCYTES % (MANUAL) 8 % (0-11); MYELOCYTES % 2 % (0-0)
[2020-05-17 20:00] VITALS: BP_SYST 131
[2020-05-17] MEDS: NACL 0.9% 1,000 ML IV SCH (20:15)
[2020-05-18] MEDS: VANCOMYCIN HCL 1,000 MG in D5W 250 ML IV SCH ×2 (05:20→13:10)
[2020-05-18] MEDS: LISINOPRIL 10 MG TABLET (PRINIVIL) PO SCH (09:00)
[2020-05-18] MEDS: LORazepam 1 MG TABLET PO PRN ×3 (09:00→15:36)
[2020-05-18] MEDS: ENOXAPARIN SODIUM 40 MG/0.4 ML SYRINGE SUBCUT SCH (09:00)
[2020-05-18] MEDS: LIDOCAINE JELLY 5 ML TUBE MM SCH ×2 (09:00→21:51)
[2020-05-18] MEDS: FUROSEMIDE 20 MG/2 ML VIAL IVP SCH ×2 (09:00→21:51)
[2020-05-18] MEDS: BALSAM PERU/CASTOR OIL 60 GM OINT...G. TP SCH (09:00)
[2020-05-18] MEDS: CLOPIDOGREL BISULFATE 75 MG TABLET PO SCH (09:00)
[2020-05-18] MEDS: FAMOTIDINE 20 MG TABLET PO SCH ×2 (09:00→21:00)
[2020-05-18] MEDS: DOCUSATE SODIUM 100 MG/10 ML UDC PO SCH (09:00)
[2020-05-18] MEDS: CHOLECALCIFEROL (VITAMIN D3) 5,000 UNIT TABLET PO SCH (09:00)
[2020-05-18] MEDS: POTASSIUM CHLORIDE 20 MEQ/PKT PACKET PO SCH (09:00)
[2020-05-18] MEDS: ASCORBIC ACID 500 MG TABLET PO SCH ×2 (09:00→21:00)
[2020-05-18] MEDS: ATORVASTATIN 20 MG TABLET PO SCH (09:00)
[2020-05-18 10:11] LABS: POTASSIUM 3.4 mmol/L (3.5-5.1)
[2020-05-18 10:12] LABS: ALBUMIN 1.8 g/dL (3.4-4.8); CALCIUM 8.5 mg/dL (8.4-11.0); CREATININE 0.49 mg/dL (0.55-1.30); TOTAL BILIRUBIN 0.5 mg/dL (0.0-1.0)
[2020-05-18 11:36] VITALS: BP_SYST 121
[2020-05-18 15:32] VITALS: BP_SYST 116
[2020-05-18] MEDS: SOD FERRIC GLUC COMPLEX/SUC 125 MG in NS 100 ML IV SCH (16:00)
[2020-05-18 20:00] VITALS: BP_SYST 116
[2020-05-18] MEDS ORDERED: VANCOMYCIN HCL 1,250 MG in NS 250 ML IV SCH (20:00)
[2020-05-18] MEDS: NACL 0.9% 1,000 ML IV SCH (20:15)
[2020-05-18] MEDS: CEFEPIME 0.5 GM in D5W 50 ML IV SCH (21:00)
[2020-05-18] MEDS: VANCOMYCIN HCL 1,250 MG in NS 250 ML IV SCH (21:50)
[2020-05-19] VITALS: BP_SYST 117
[2020-05-19] MEDS: VANCOMYCIN HCL 1,250 MG in NS 250 ML IV SCH ×3 (03:45→21:15)
[2020-05-19 08:00] VITALS: BP_SYST 142
[2020-05-19] MEDS: LIDOCAINE JELLY 5 ML TUBE MM SCH ×2 (08:01→21:20)
[2020-05-19] MEDS: POTASSIUM CHLORIDE 20 MEQ/PKT PACKET PO SCH (08:01)
[2020-05-19] MEDS: DOCUSATE SODIUM 100 MG/10 ML UDC PO SCH (08:01)
[2020-05-19] MEDS: ASCORBIC ACID 500 MG TABLET PO SCH ×2 (08:02→21:00)
[2020-05-19] MEDS: FAMOTIDINE 20 MG TABLET PO SCH ×2 (08:03→21:00)
[2020-05-19] MEDS: BALSAM PERU/CASTOR OIL 60 GM OINT...G. TP SCH (08:03)
[2020-05-19] MEDS: ATORVASTATIN 20 MG TABLET PO SCH (08:05)
[2020-05-19] MEDS: FUROSEMIDE 20 MG/2 ML VIAL IVP SCH ×2 (08:29→21:15)
[2020-05-19] MEDS: LISINOPRIL 10 MG TABLET (PRINIVIL) PO SCH (08:30)
[2020-05-19] MEDS: CEFEPIME 0.5 GM in D5W 50 ML IV SCH ×2 (09:00→20:30)
[2020-05-19] MEDS: ENOXAPARIN SODIUM 40 MG/0.4 ML SYRINGE SUBCUT SCH (09:00)
[2020-05-19] MEDS: CLOPIDOGREL BISULFATE 75 MG TABLET PO SCH (09:00)
[2020-05-19] MEDS: CHOLECALCIFEROL (VITAMIN D3) 5,000 UNIT TABLET PO SCH (09:00)
[2020-05-19] MEDS ORDERED: CLOPIDOGREL BISULFATE 75 MG TABLET ONE (10:03)
[2020-05-19 11:26] VITALS: BP_SYST 126
[2020-05-19 15:23] VITALS: BP_SYST 139
[2020-05-19 15:34] VITALS: BP_SYST 139
[2020-05-19] MEDS: SOD FERRIC GLUC COMPLEX/SUC 125 MG in NS 100 ML IV SCH (16:59)
[2020-05-19 20:00] VITALS: BP_SYST 126
[2020-05-19] MEDS: NACL 0.9% 1,000 ML IV SCH (20:15)
[2020-05-20] VITALS (16 sets, daily range): BP systolic 51–128
[2020-05-20] MEDS ORDERED: NOREPINEPHRINE 4 MG/4 ML VIAL IV ONE ×5 (03:41→14:20)
[2020-05-20] MEDS ORDERED: NOREPINEPHRINE BITARTRATE 4 MG in NS 246 ML IV PRN (03:45)
[2020-05-20] MEDS ORDERED: PHENYLEPHRINE HCL 10 MG/ML VIAL (NEOSYNEPHRINE) ONE ×3 (07:21→10:37)
[2020-05-20] MEDS: DOCUSATE SODIUM 100 MG/10 ML UDC PO SCH (09:00)
[2020-05-20] MEDS: CHOLECALCIFEROL (VITAMIN D3) 5,000 UNIT TABLET PO SCH (09:00)
[2020-05-20] MEDS: BALSAM PERU/CASTOR OIL 60 GM OINT...G. TP SCH (09:00)
[2020-05-20] MEDS: FAMOTIDINE 20 MG TABLET PO SCH (09:00)
[2020-05-20] MEDS: LISINOPRIL 10 MG TABLET (PRINIVIL) PO SCH (09:00)
[2020-05-20] MEDS: NACL 0.9% 1,000 ML IV SCH (09:00)
[2020-05-20] MEDS: ASCORBIC ACID 500 MG TABLET PO SCH (09:00)
[2020-05-20] MEDS: CLOPIDOGREL BISULFATE 75 MG TABLET PO SCH (09:00)
[2020-05-20] MEDS: FUROSEMIDE 20 MG/2 ML VIAL IVP SCH (09:00)
[2020-05-20] MEDS: ATORVASTATIN 20 MG TABLET PO SCH (09:00)
[2020-05-20] MEDS: ENOXAPARIN SODIUM 40 MG/0.4 ML SYRINGE SUBCUT SCH (09:00)
[2020-05-20] MEDS: POTASSIUM CHLORIDE 20 MEQ/PKT PACKET PO SCH (09:00)
[2020-05-20] MEDS ORDERED: PROPOFOL DRIP 100 ML IV ONE (09:45)
[2020-05-20 10:50] LABS: ALBUMIN 1.4 g/dL (3.4-4.8); CALCIUM 7.2 mg/dL (8.4-11.0); CREATININE 1.95 mg/dL (0.55-1.30); PHOSPHORUS 8.5 mg/dL (2.7-4.5); TOTAL BILIRUBIN 1.1 mg/dL (0.0-1.0)
[2020-05-20 11:00] LABS: HEMATOCRIT 30.4 % (36-54); HEMOGLOBIN 9.2 g/dL (14.0-18.0); MEAN CORPUSCULAR HEMOGLOBIN 29 pg (27-31); MEAN CORPUSCULAR HGB CONC 30 % (32-36); MEAN CORPUSCULAR VOLUME 96 fL (79.0-98.0); PLATELET COUNT (AUTO) 299 K/uL (130-430); RED BLOOD CELL COUNT(AUTO) 3.17 MIL/uL (4.2-6.2); RED CELL DISTRIBUTION WIDTH 14.2 % (9.0-15.0)
[2020-05-20 11:11] LABS: C-REACTIVE PROTEIN QUANT 10.9 mg/dL (0-0.5)
[2020-05-20 11:23] LABS: WHITE BLOOD COUNT (AUTO) 45.8 K/uL (4.8-10.8)
[2020-05-20 12:36] LABS: ERYTHROCYTE SEDIMENTATION RATE 75 MM/HR (0-15)
[2020-05-20] MEDS ORDERED: MEROPENEM 500 MG in NS 50 ML IV SCH (14:00)
[2020-05-20] MEDS ORDERED: methylPREDNISolone SOD SUCC/PF 62.5 MG/ML VIAL IVP SCH (14:00)
[2020-05-20] MEDS ORDERED: COMMUNICATION ORDER XX ONE (14:15)
[2020-05-20 14:47] LABS: BAND % (MANUAL) 29 % (0-6); BASOPHILS % (MANUAL) 0 % (0-2); EOSINOPHILS % (MANUAL) 0 % (0-7); LYMPHOCYTES % (MANUAL) 3 % (20-46); METAMYELOCYTES % 3 % (0-0); MONOCYTES % (MANUAL) 5 % (0-11); MYELOCYTES % 2 % (0-0)
[2020-05-20 14:48] LABS: WBC MORPHOLOGY TOXIC GRANULATION
[2020-05-20] MEDS ORDERED: NOREPINEPHRINE BITARTRATE 16 MG in NS 234 ML IV PRN (15:15)
== END 2020-05-20 20:29 | disposition expired | DRG 207 ==
LOC: SED 18:19 → SIC 21:26 → STU 05-08 16:40 → SMU 05-10 16:58 → STU 05-10 22:01 → SIC 05-20 03:25
PROVIDERS: ADMIT Family Medicine; ATTEND Family Medicine
PROC: 5A1955Z Respiratory Ventilation, Greater than 96 Consecutive Hours (ICD-10-PCS; principal; 2020-04-25)
PROC: 5A12012 Performance of Cardiac Output, Single, Manual (ICD-10-PCS; 2020-04-25)
PROC: 06HY33Z Insertion of Infusion Device into Lower Vein, Percutaneous Approach (ICD-10-PCS; 2020-04-25)
PROC: 5A09357 Assistance with Respiratory Ventilation, Less than 24 Consecutive Hours, Continuous Positive Airway Pressure (ICD-10-PCS; 2020-04-25)
PROC: 0BH17EZ Insertion of Endotracheal Airway into Trachea, Via Natural or Artificial Opening (ICD-10-PCS; 2020-04-25)
DX: U07.1 COVID-19 (principal); J15.9 Unspecified bacterial pneumonia; J12.82 Pneumonia due to coronavirus disease 2019; J80 Acute respiratory distress syndrome; I21.A1 Myocardial infarction type 2; R65.21 Severe sepsis with septic shock; G93.1 Anoxic brain damage, not elsewhere classified; N17.9 Acute kidney failure, unspecified; E46 Unspecified protein-calorie malnutrition; Z86.73 Personal history of transient ischemic attack (TIA), and cerebral infarction without residual deficits; E78.5 Hyperlipidemia, unspecified; G47.00 Insomnia, unspecified; G89.29 Other chronic pain; M54.9 Dorsalgia, unspecified; N28.9 Disorder of kidney and ureter, unspecified; Z96.653 Presence of artificial knee joint, bilateral; Z96.612 Presence of left artificial shoulder joint; Z96.611 Presence of right artificial shoulder joint; M19.012 Primary osteoarthritis, left shoulder; M19.011 Primary osteoarthritis, right shoulder; M17.0 Bilateral primary osteoarthritis of knee; I46.9 Cardiac arrest, cause unspecified; I12.9 Hypertensive chronic kidney disease with stage 1 through stage 4 chronic kidney disease, or unspecified chronic kidney disease; N18.2 Chronic kidney disease, stage 2 (mild); D64.9 Anemia, unspecified; Z80.0 Family history of malignant neoplasm of digestive organs; Z81.8 Family history of other mental and behavioral disorders; Z68.25 Body mass index [BMI] 25.0-25.9, adult; Z82.0 Family history of epilepsy and other diseases of the nervous system; Z87.891 Personal history of nicotine dependence
CPT/HCPCS: 36415; 36600; 70450-TC; 70551; 71045; 71275; 74018; 76376; 80053; 80061; 80202-TC; 81000-TC; 82140-TC; 82550-TC; 82607; 82728; 82746; 82803-TC; 82962; 83540-TC; 83550-TC; 83605; 83615-TC; 83735-TC; 83880; 84100-TC; 84134; 84439; 84443-TC; 84484; 85007; 85025; 85027; 85379; 85384-TC; 85610-TC; 85651-TC; 85730-TC; 86140; 87040-TC; 87086; 87186-TC; 92610-GN; 92950; 93005; 93306; 94002; 94003; 94640; 94760; 96361; 96365; 96368; 96375; 99291; G0378; J0456; J0692; J0696; J1100; J1450; J1650; J1940; J2060; J2185; J2270; J2370; J2704; J2916; J2930; J3370; J3480; J3490; J7030; J7040; J7050; J7060; J7613; P9046; Q9967; U0003